=== PATIENT | male | born 1945 | race Caucasian/White ===

== ENCOUNTER 2016-03-02 09:16 | Inpatient (IN) | payer OTHER ==
[2016-03-01 10:17] VITALS: BMI 32.9
[~2016-03-02] VITALS: Ht 175.3 cm; Wt 92.7 kg
[2016-03-02] VITALS (16 sets, daily range): BP systolic 111–163; BP diastolic 50–85; PULSE 66–81; RESP 0–22; Ht 175.3 cm; Wt 92.7 kg
[2016-03-02] MEDS ORDERED: D5W-0.45 NACL + KCL 20 MEQ 1,000 ML IV SCH (11:00)
[2016-03-02] MEDS ORDERED: CEFAZOLIN 2 GM/50 ML (PMX) 50 ML IVPB ONE (11:00)
--- NOTE | 2016-03-02 11:41 | HPN ---
Date/Time of Note Date/Time of Note DATE: 03/02/16 TIME: 11:41 Interval H&P Admission Note Pt. seen H&P reviewed: No system changes Pt. seen H&P reviewed. No system changes (I attest that I have seen and examined the patient and reviewed the operation in detail, as well as its risks , benefits and alternatives of the operation). I attest that I have seen and examined the patient and reviewed in detail the operation, and its associated risks, benefits and alternative. I have answered all the patient's questions to the best of my ability and the patient wishes to proceed. Please refer to rest of electronic medical record for additional updates. GLADYS MORALES M.D. Mar 02, 2016 11:41
[2016-03-02] MEDS ORDERED: BUPIVACAINE 0.25%/EPI (SDV) 30 ML INJ ONE (11:58)
[2016-03-02] MEDS ORDERED: MIDAZOLAM 1 MG/ML 2 ML INJ ONE (12:23)
[2016-03-02] MEDS ORDERED: BUPIVACAINE 0.25%/EPI (SDV) 30 ML INJ INJ ONE (12:27)
[2016-03-02] MEDS ORDERED: ASPI81TA3 PO (14:46)
[2016-03-02] MEDS ORDERED: LEVO75TA5 PO (14:47)
[2016-03-02] MEDS ORDERED: TAMS0.4C2 PO (14:55)
[2016-03-02] MEDS ORDERED: ALLO100T PO (14:55)
[2016-03-02] MEDS ORDERED: DIGO125T6 PO (14:55)
[2016-03-02] MEDS ORDERED: HEP30MU30 IJ (14:55)
[2016-03-02] MEDS ORDERED: CARV3.1260 PO (14:55)
[2016-03-02] MEDS ORDERED: RANO500T2 PO (14:55)
[2016-03-02] MEDS ORDERED: ALBU2.5V9 IH (14:55)
[2016-03-02] MEDS ORDERED: PANT40TA4 PO (14:55)
[2016-03-02] MEDS ORDERED: RAMI2.5C36 PO (14:55)
[2016-03-02] MEDS ORDERED: ATOR40TA68 PO (14:55)
[2016-03-02] MEDS ORDERED: DIVA250T4 PO (14:55)
[2016-03-02] MEDS ORDERED: FENO150C3 PO (14:55)
[2016-03-02] MEDS ORDERED: LAS80 PO (14:55)
[2016-03-02] MEDS ORDERED: ONDANSETRON 4 MG INJ IV PRN (15:00)
[2016-03-02] MEDS ORDERED: FENTAnyl 50 MCG/ML VIAL IV PRN (15:00)
[2016-03-02] MEDS ORDERED: DIPHENHYDRAMINE 50 MG INJ IV PRN (15:00)
[2016-03-02] MEDS ORDERED: MEPERIDINE 25 MG INJ IV PRN (15:00)
[2016-03-02] MEDS ORDERED: FUROSEMIDE 20 MG INJ ONE (16:13)
[2016-03-02] MEDS ORDERED: ONDANSETRON 4 MG INJ ONE (16:45)
[2016-03-02] MEDS ORDERED: GLYCOPYRROLATE 0.4 MG INJ ONE (16:45)
[2016-03-02] MEDS ORDERED: ETOMIDATE 20 MG INJ ONE (16:45)
[2016-03-02] MEDS ORDERED: NEOSTIGMINE 3 MG/3 ML SYRINGE ONE (16:45)
[2016-03-02] MEDS ORDERED: LIDOCAINE 2% (SDV) 5 ML INJ ONE (16:45)
[2016-03-02] MEDS ORDERED: ROCURONIUM 50 MG INJ ONE (16:45)
[2016-03-02] MEDS ORDERED: CEFAZOLIN 1 GM INJ ONE (16:48)
[2016-03-02] MEDS ORDERED: metroNIDAZOLE 500 MG/NS (PMX) 100 ML IVPB ONE (16:48)
[2016-03-02] MEDS ORDERED: HYDROCODONE/APAP (5/325) TAB PO PRN ×2 (17:00)
[2016-03-02] MEDS ORDERED: HYDROmorphONE 1 MG/ML SYG IV PRN (17:00)
[2016-03-02] MEDS ORDERED: DOCUSATE SODIUM 100 MG CAP PO PRN (17:00)
[2016-03-02] MEDS ORDERED: BISACODYL 10 MG SUPP PR PRN (17:00)
[2016-03-02] MEDS ORDERED: NA PHOSPHATE/BIPHOS 133 ML ENEMA PR PRN ×3 (17:00→18:00)
--- NOTE | 2016-03-02 17:09 | OPR ---
Date/Time of Note Date/Time of Note DATE: 03/02/16 TIME: 17:08 Operative Report Operative Findings [facility] INPATIENT OPERATIVE NOTE PLACE OF SERVICE: [facility] DATE OF SURGERY: 03/02/2016 PREOPERATIVE DIAGNOSIS: 1. Acute cholecystitis 2. Back pain 3. CAD (coronary artery disease) 4. Decreased renal function 5. Foot swelling 6. High blood pressure 7. High blood sugar 8. History of Clostridium difficile infection 9. History of methicillin resistant staphylococcus aureus (MRSA) 10. Hypothyroidism 11. Incisional hernia 12. Serum cholesterol very high 13. Stroke 14. Weakness 15. AMPUTATION OF TOE 16. Angioplasty 17. CABG x 5 - Coronary artery bypass grafts x 5 18. Cardiac catheterization of right and left heart for ventriculography 19. Cataract 20. Colonoscopy 21. GASTRIC BYPASS FOR OBESITY 22. Arthritis POSTOPERATIVE DIAGNOSIS: 1. Severe acute on chronic cholecystitis 2. Back pain 3. CAD (coronary artery disease) 4. Decreased renal function 5. Foot swelling 6. High blood pressure 7. High blood sugar 8. History of Clostridium difficile infection 9. History of methicillin resistant staphylococcus aureus (MRSA) 10. Hypothyroidism 11. Incisional hernia 12. Serum cholesterol very high 13. Stroke 14. Weakness 15. AMPUTATION OF TOE 16. Angioplasty 17. CABG x 5 - Coronary artery bypass grafts x 5 18. Cardiac catheterization of right and left heart for ventriculography 19. Cataract 20. Colonoscopy 21. GASTRIC BYPASS FOR OBESITY 22. Arthritis OPERATION: 1. Laparoscopic cholecystectomy, partial; modifier 22 2. Intraoperative ultrasound of liver 3. Abdominal lavage 4. Lysis of adhesions 5. Reinforcement of cholecystectomy staple line SURGEON: Gladys Morales M.D. CIRCULAR SAWYER HELPER: 1. WILLIAM Lira ANESTHESIA: General endotracheal tube anesthesia ANESTHESIOLOGIST: Jackie De Los Santos M.D. BRIEF SUMMARY: An otherwise uncomplicated but very challenging laparoscopic cholecystectomy was performed with findings of severe acute on chronic cholecystitis and no major evidence of malignancy. BRIEF HISTORY: The patient is a very pleasant 70-year-old gentleman, well known to me from prior admission in September 2015 at [facility] when he had just had back surgery and I assisted with non-operative management of concerns about chronic cholecystitis, who was readmitted to [facility] on 02/03/16 with otherwise asymptomatic gallbladder wall abnormal thickening on imaging in the setting of acute on chronic congestive heart failure, renal compromise and GI bleeding. He again stabilized enough to be able to discharge home. I had discussed his case with his minilab operator, Dr. Shabazz and we concluded that there were no further risk reduction strategies that could be employed for his heart. Given the sig change in GB images, I recommended that we proceed with laparoscopic, possible open cholecystectomy. We reviewed the operation in detail as well as the risks, benefits, alternatives, and expected outcomes of this operation. After careful consideration of all the risks, benefits, and alternatives, the patient and family appeared to understand those risks and wished to proceed with surgery. For a detailed report of my consultation with patient and family, please refer to my separate consultation note. STATEMENT OF THE INFORMED CONSENT: The patient and family appeared to understand the risks of the operation to include, but not be limited to risk of postoperative pain and scar tissue, possible infection or bleeding requiring other interventions such as opening the wound, placement of drainage catheters, or other operative interventions; possible injury to surrounding to structures including bowel, bladder, bile duct, or blood vessels, or solid organs such as liver, kidney, or pancreas requiring other interventions or procedures; possible leakage of bile from surgical clip sites, suture lines, or worse, from common bile duct injury, causing significant increase in morbidity and mortality and requiring multiple interventions including but not limited to, placement of drainage catheters, imaging studies, as well as operative interventions; possible other source of sepsis such as urinary tract infections or pneumonias, or other sources of potentially life threatening problems such as deep venous thrombus formation causing pulmonary embolism, myocardial arrhythmias and infarctions, and even . We also briefly discussed the potential need to receive blood products and their potential complications of blood transfusion reactions, transmission of infections, or other complications. After careful consideration of all their options, the patient and family appeared to understand and wished to proceed with surgery. DESCRIPTION OF PROCEDURE: After obtaining informed consent, the patient was brought into the operating room and was placed in a normal supine position, where successful general endotracheal tube anesthesia was performed. The patient 's abdominal skin was prepped and draped, from the nipple line down to the level of the groins, in the usual sterile fashion. Intravenous access was difficult to obtain but eventually obtained with the use of central line and placement of an A-line by anesthesiology, and appropriately chosen and dosed prophylactic intravenous antimicrobials were administered. We then called a surgical time-out where patient's identification, date of , nature of the operation, allergies, presence of intravenous antimicrobials, presence of needed equipment, and any other concerns were reviewed and agreed upon by all members of the operating room team. We then started the operation by placing a 5-mm skin incision in the right- upper quadrant, subcostal midclavicular line, and introduced a 5-mm [employer] trocar into the peritoneal space, visualizing all the layers of the abdominal wall as we entered. Note that there was no indication of any injury to underlying structures once we entered the peritoneum. We insufflated the abdominal cavity to a maximum pressure of 15 mmHg, again, confirmed lack of any injury to underlying structures prior to visualizing the rest of the abdominal cavity. We found significant amount of omental adhesions onto the midline from the patient's prior gastric bypass operation. We could not see the gallbladder, and the liver appeared to be reasonably healthy. There was no evidence of malignancy. No evidence of calcifications or significant issues with other abnormalities. With this information, we went a head and placed the other trocars under direct visualization, after injecting their sites with 0.25% Marcaine with epinephrine , placing a 5-mm trocar in the umbilical midline area, a 5-mm trocar in the right anterior axillary line, and a 12-mm trocar in the midline subxiphoid region. With our instruments in place, we had excellent visualization and access to the right-upper quadrant. We then proceeded to inspect the abdominal cavity carefully. The edge of the right lobe of the liver was fused onto omental adhesions that were going onto the transverse colon. We could not see fundus of the gallbladder. I therefore used intraoperative ultrasound to visualize the area of the gallbladder bed as follows: Intraoperative ultrasound of the liver: Gallbladder bed appeared to have a distinct border between the liver and the gallbladder. Gallbladder wall was thickened and there was complex fluid within the gallbladder reminiscent of chronic infection. No obvious indication of a mass process or infiltrative process was found and this alleviated our fears of a malignant process being the underlying cause of the patient's cholecystitis. We also briefly looked at the rest the liver as outlined. The following segments were visualized, and there were no lesions that were concerning for malignant disease in any of them: Caudate lobe: No lesion. Segment 2: No lesion. Segment 3: No lesion. Segment 4: No lesion in segment 4A and no lesion in segment 4B. Segment 5: No lesion. Segment 6: No lesion. Segment 7: No lesion. Segment 8: No lesion. We also noted antegrade flow through the portal vein on the left and right as well as the hepatic artery on the left and right and also antegrade flow through the middle right and left hepatic veins. Biliary system was not dilated. We then started the process of very meticulous lysis of adhesions that took approximately 60 minutes in order to free the edges of the gallbladder from its surrounding tissues. There was dense adhesions between the gallbladder and the course of the janse hepatis. We took extreme care to use judicious blunt force to dissect the gallbladder away from the janes hepatis and to dissect it off the gallbladder bed. In this process, we entered the gallbladder and suctioned off significant amount of foul-smelling purulent pus from the gallbladder. We opened the top of the gallbladder and used a stone scoop or to remove all the stones that were in the gallbladder (numerous and in different sizes). We then continued our careful dissection down the gallbladder bed keeping in mind the portal structures. There was very dense scar tissue present between the gallbladder and the liver but no infiltrative mass identified. I did send a part of the gallbladder wall to pathology for frozen sections and no evidence of malignancy was identified. Once we had mobilized 90% of the cores the gallbladder and I was sure that there was no stones within the remnant portion of the gallbladder, I decided to perform a partial cholecystectomy with one firing of the echelon stapler (60 mm ) blue load to transect the gallbladder from its attachments onto the janes hepatis. Note that this decision was made carefully and due to considerations for significant increase in injury to what happened to structures including common bile duct if further dissection was continued. The proximal left side of the staple line appeared to have an area of possible open area of staple line and for this reason I reinforced this region with one application of figure-of- eight 3-0 Vicryl suture laparoscopically. We then removed the gallbladder within an Endo Catch bag through the 12 mm trocar site without having to enlarge in this area. Gallbladder was sent to pathology for permanent sections. Returning to the abdominal cavity, we ensured that there was adequate hemostasis and bile-stasis, placed a 19 [place] drain through the right midclavicular subcostal port site and fixed the drain onto the skin using 2-0 nylon suture and laid the drain and in the gallbladder fossa, irrigated the abdominal cavity with copious amounts of normal saline (at least 2 L) and suctioned off the excess irrigant prior to removal of all of or equipment, including the pneumoperitoneum from the abdominal cavity, and then reapproximating the 12-mm trocar site with one [id number] 0 Vicryl suture, followed by washing the wounds with copious amounts of normal saline, and then reapproximating the skin using interrupted 4-0 Monocryl sutures. Light dressing was then applied. At the end of the operation, both the sponge count and needle count were reportedly correct x2. The patient tolerated the procedure without any reported complications. Note that this operation qualifies for modifier 22 given the degree of difficulty of the case as well as complex history of decision making. ESTIMATED BLOOD LOSS: 100 mL BLOOD OR BLOOD PRODUCT TRANSFUSIONS: One unit packed red blood cells was transfused given the preoperative anemic state of the patient and the cardiac issues at the end had recently. SPECIMENS: 1. Gallbladder COMPLICATIONS: None. DISPOSITION: Recovery area. Disclaimer: Inadvertent spelling and grammatical errors are likely due to EHR/ dictation software use and do not reflect on the quality of delivered patient care. GLADYS MORALES M.D. Mar 02, 2016 17:08
[2016-03-02 18:11] LABS: BASOPHIL # 0.2 10^3/ul (0.0-0.1); BASOPHILS % 3.3 % (0.0-2.0); EOSINOPHILS % 0.6 % (0.0-7.0); HEMATOCRIT 28.6 % (42.0-52.0); HEMOGLOBIN 9.4 g/dl (14.0-18.0); LYMPHOCYTES # 0.9 10^3/ul (0.8-2.9); LYMPHOCYTES % 15.7 % (15.0-51.0); MEAN CORPUSCULAR HEMOGLOBIN 29.2 pg (29.0-33.0); MEAN CORPUSCULAR HGB CONC 32.9 g/dl (32.0-37.0); MEAN CORPUSCULAR VOLUME 88.6 fl (82.0-101.0); MEAN PLATELET VOLUME 7.8 fl (7.4-10.4); MONOCYTE # 0.2 10^3/ul (0.3-0.9); MONOCYTES % 4.2 % (0.0-11.0); NEUTROPHIL # 4.3 10^3/ul (1.6-7.5); NEUTROPHILS % 76.2 % (39.0-77.0); PLATELET COUNT 260 10^3/UL (140-440); RED BLOOD COUNT 3.23 10^6/ul (4.70-6.10); RED CELL DISTRIBUTION WIDTH 24.6 % (11.5-14.5); UNCORRECTED WBC 5.7 10^3/ul (4.8-10.8); WHITE BLOOD COUNT 5.7 10^3/ul (4.8-10.8)
[2016-03-02] MEDS: HYDROmorphONE 1 MG/ML SYG IV PRN ×2 (18:11→21:11)
[2016-03-02 18:18] LABS: CONDITION 1; LH ANALYZER COMMENTS 1
[2016-03-02 18:22] LABS: INR 1.33; PROTIME 16.6 Sec (12.2-14.2); PT RATIO 1.3
[2016-03-02 18:23] LABS: PARTIAL THROMBOPLASTIN TIME 33.3 Sec (25.0-35.0)
[2016-03-02 18:24] LABS: ALBUMIN 2.6 g/dl (3.3-4.9)
[2016-03-02 18:25] LABS: POTASSIUM 3.4 mmol/L (3.5-5.1)
[2016-03-02 18:27] LABS: BILIRUBIN,INDIRECT 0.3 mg/dl (0-1.1); BILIRUBIN,TOTAL 0.3 mg/dl (0.2-1.3)
[2016-03-02 18:28] LABS: ALBUMIN/GLOBULIN RATIO 0.78; CREATININE 1.87 mg/dl (0.61-1.24); TOTAL PROTEIN 5.9 g/dl (6.1-8.1)
[2016-03-02 18:31] LABS: CALCIUM 8.2 mg/dl (8.4-10.2)
[2016-03-02 19:08] LABS: PHOSPHORUS 3.7 mg/dl (2.5-4.9)
[2016-03-02 19:09] LABS: MAGNESIUM 1.9 mg/dl (1.7-2.5)
--- NOTE | 2016-03-02 19:31 | CONS ---
DATE OF ADMISSION: 03/02/2016 DATE OF CONSULTATION: 03/02/2016 REQUESTING BOOTH MANAGER: Dr. Gladys Morales. REASON FOR CONSULTATION: Medical management postoperatively. HISTORY OF PRESENT ILLNESS: This is a 70-year-old gentleman with multiple medical problems, diagnos es, such as myocardial infarction, coronary artery disease, CABG, end-stage renal disease on hemodia lysis, cardiomyopathy, diabetic nephropathy, recent diagnosis of DVT on 01/2016 on Effient, status p ost IVC filter, wheelchair bound, who usually presents and is hospitalized at [facility]. The patient was seen and evaluated by Dr. Gladys Morales at [facility] secondary to having a bdominal pain and was diagnosed with symptomatic cholelithiasis, although he recently just had a galicia inectomy and the patient then was sent to care home facility. Then this time, he has been adm itted by Dr. Gladys Morales for elective laparoscopic cholecystectomy secondary to severe acute on ch ronic cholecystitis. After discussing the mode of treatment and the risks and benefits of the surge ry and signing consent, the patient was taken to OR on 03/02/2016. Under general endotracheal tube anesthesia, the patient had a laparoscopic cholecystectomy, partial modifier 22, intraoperative ultr asound of the liver, lysis of adhesions. The patient tolerated the procedure well and was taken to recovery room. Estimated blood loss was 100 mL. One unit of packed red blood cells was transfused given the preoperative anemic state of patient and cardiac issue at the end of the surgery. The pat ient was taken to recovery room in stable condition. At this time, patient is awake, alert, able to follow simple commands. Great amount of information was obtained from his spouse who was at the [facility]. PAST MEDICAL AND SURGICAL HISTORY: As above per HPI. MEDICATIONS: 1. Albuterol sulfate. 2. Allopurinol. 3. Aspirin 81 mg. 4. Lipitor 40 mg. 5. Coreg 3.125 mg. 6. Digoxin 0.125 mg. 7. Divalproex 250 mg. 8. Fenofibrate 145 mg. 9. Lasix 80 mg. 10. Heparin 5000 units q.8h. 11. Levothyroxine 75 mcg. 12. Protonix 40 mg. 13. ____ 2.5 mg. 14. Ranexa 500 mg. 15. Flomax 0.4 mg. PAST MEDICAL AND SURGICAL HISTORY: 1. History of myocardial infarction. 2. Coronary artery disease. 3. History of coronary artery bypass graft. 4. History of deep venous thrombosis, status post inferior vena cava filter. 5. Diabetes mellitus. 6. End-stage renal disease on hemodialysis. 7. Diabetic nephropathy. 8. Congestive heart failure. 9. Recent laminectomy. 10. Gout. 11. Dyslipidemia. 12. Seizure disorder. 13. Hypothyroidism. 14. GERD. 15. Benign prostatic hypertrophy. ALLERGIES: 1. TAPE. 2. TRAMADOL. SOCIAL HISTORY: Former smoker. He used to drink alcohol occasionally. No illicit drugs. He lives at home with his , although at this time he was recently at a care home facility secondar y to debility. REVIEW OF SYSTEMS: As above per HPI, otherwise 12 review of systems has been found to be negative. PHYSICAL EXAMINATION: VITAL SIGNS: Temperature 98.0, pulse 73, respiration 16, blood pressure 163/85, oxygen 98% in room air. GENERAL APPEARANCE: The patient is lying in bed comfortably without any distress. He is awake, remberto rt, is able to follow commands. EYES AND EARS, NOSE, THROAT: Conjunctivae and lids are normal. Pupils are normal. Extraocular mov ements normal. Hearing grossly normal. Lips, teeth, and gums are normal. Oral mucosa mildly dry. NECK: Supple. Trachea is midline. LUNGS: Clear to auscultation bilaterally. CARDIOVASCULAR: Normal S1, S2. Regular rhythm and rate. Positive 1 edema bilateral lower extremit ies. ABDOMEN: Soft, nontender. Surgical site is dry and clean. There is a CHRIS tube in place. EXTREMITIES: Bilateral lower extremity edema with ____ on the left lower extremity. NEUROLOGIC: He is awake, alert. LABORATORY WORK AND IMAGING: Glucose is 97. The rest is pending. ASSESSMENT AND PLAN: 1. Acute on chronic cholecystitis status post laparoscopic cholecystectomy. Continue postsurgical care by Dr. Gladys Morales. 2. History of coronary artery disease, status post myocardial infarction. Continue Coreg, statin, aspirin. 3. Recent history of deep venous thrombosis, status post inferior vena cava filter. At this time, patient is on heparin, which will transition to Effient. 4. Hypothyroidism. Continue levothyroxine. 5. Congestive heart failure. Continue ____, Coreg. 6. Seizure disorder. Continue divalproex. 7. Dyslipidemia. Continue statin. 8. End-stage renal disease on hemodialysis. Nephrology has been consulted. 9. Diabetes mellitus. We will place the patient on insulin sliding scale. 10. For gastrointestinal prophylaxis, on proton pump inhibitor. 11. We will continue to monitor patient closely. Further recommendations, management, and treatmen t as per clinical course. Total amount of time was spent for evaluation of patient and consultation note 45 minutes. Dictated By: JS BATES MD PN/NTS Conf#: [id number] DID#: [id number] CC: GLADYS MORALES MD;*EndCC*
[2016-03-02 20:27] LABS: ADD UMIC YES; URINE BILIRUBIN (Dip) 1+ (NEGATIVE); URINE BLOOD (Dip) TRACE (NEGATIVE); URINE COLOR YELLOW (YELLOW); URINE GLUCOSE (Dip) NEGATIVE (NEGATIVE); URINE KETONES (Dip) NEGATIVE (NEGATIVE); URINE LEUKOCYTE ESTERASE (Dip) NEGATIVE (NEGATIVE); URINE NITRITE (Dip) NEGATIVE (NEGATIVE); URINE TOTAL PROTEIN (Dip) 2+ (NEGATIVE); URINE UROBILINOGEN (Dip) 0.2 E.U./dL (0.1-1.0)
[2016-03-02 20:41] LABS: ICTOTEST NEGATIVE (NEGATIVE)
[2016-03-02 20:42] LABS: BACTERIA,URINE FEW; TRANSITIONAL EPI CELLS,URINE FEW
--- NOTE | 2016-03-02 21:18 | CONS ---
DATE OF ADMISSION: 03/02/2016 DATE OF CONSULTATION: 03/02/2016 TYPE OF CONSULTATION: Nephrology. REASON FOR CONSULTATION: Acute versus acute on chronic kidney injury, history of previous hemodialy sis on last admission. HISTORY OF PRESENT ILLNESS: This is a 70-year-old male who has a past medical history of myocardial infarction; coronary artery disease; coronary artery bypass graft; cardiomyopathy; diabetic nephrop athy; history of recent diagnosis of DVT in 01/2016, on Effient, status post IVC filter; wheelchair bound who usually gets admitted at the [facility]. He was recently evaluated by Dr. Andrez Hill at [facility] for having abdominal pain and was diagnosed with symptomatic cholelit hiasis. He was sent to a halfway facility from that. He was brought in for elective laparo scopic cholecystectomy for acute on chronic cholecystitis. Apparently patient gives a history of having hemodialysis for acute on chronic renal failure approxi mately 1 week before. He had hemodialysis done, and since he was able to come off the hemodialysis, has not required any hemodialysis since then. This time, he was brought in by Dr. Andrez Hill fo r elective laparoscopic cholecystectomy. He underwent surgery. He was evaluated in the recovery ro om. He had approximately 100 mL blood loss. Currently he denies any symptoms of dysuria, any hemat uria. He is making a good amount of urine. No chest pain, palpitations. He is awake, alert, able to follow simple commands. The patient's was at bedside, and some of the information has been obtained from his spouse at bedside. PAST MEDICAL HISTORY AND SURGICAL HISTORY: As per the HPI. MEDICATIONS: As per medical reconciliation. ALLERGIES: 1. TAPE. 2. TRAMADOL. SOCIAL HISTORY: He is a former smoker, used to drink alcohol occasionally. No illicit drugs. He l doris at home with his , although at this time he was recently at a halfway facility, dis charged from recent admission at the [facility]. REVIEW OF SYSTEMS: As per HPI. PHYSICAL EXAMINATION: VITAL SIGNS: Temperature 98.7, heart rate is 66, respirations are 18, blood pressure is 112/56, sat uration is 97% on 2 L nasal cannula. GENERAL: Awake, alert. No acute distress. HEENT: Normal. Oropharynx clear. NECK: Supple. No JVD, no lymphadenopathy. LUNGS: Clear to auscultation. No crackles, no wheezes. HEART: S1, S2 with regular rhythm, no murmur. ABDOMEN: Soft. Dressing is intact. No bleeding, no hematoma. EXTREMITIES: No clubbing, cyanosis, edema. NEUROLOGICAL: Nonfocal, intact. PSYCHIATRIC: Appropriate affect and mood. LABORATORY DATA: 1. WBC 5.7, hemoglobin 9.4, platelet count is 260. Sodium 139, potassium 3.4, chloride 98, bicarbo velia 32, BUN 42, creatinine 1.8, glucose is 80, calcium is 8.2. LFTs are normal. Phosphorus is 3.7 , magnesium 1.9. Albumin 2.6. 2. PT 16.6, PTT 33.3, INR 1.33. IMPRESSION: This is a 70-year-old male with: 1. Status post laparoscopic cholecystectomy, postoperative day 0. 2. Acute versus acute on chronic renal failure, likely secondary to a little prerenal azotemia. 3. History of chronic kidney disease, possibly stage III secondary to diabetic nephropathy. 4. History of coronary artery disease. 5. History of hypertension. 6. History of diabetes mellitus. 7. History of previous hemodialysis done for acute renal failure versus acute on chronic renal fail ure. The patient has been able to come off from dialysis. 8. History of recent diagnosis of deep venous thrombosis at [facility] 01/2016, on Effient . 9. Status post inferior vena cava filter. PLAN: Thank you, Dr. Rod, for this consultation. Apparently the patient has had a history of hemodialysis, and he was able to come off hemodialysis. Currently he is not on hemodialysis. His creatinine has been around 1.2, which I think is likely acute versus acute on chronic renal failure secondary to possible prerenal azotemia. He has a history of chronic kidney disease stage III secon natalia to diabetic nephropathy. I will order the patient's urine studies including a urine protein, urine creatinine, urine sodium, and I will also order the renal ultrasound to assess his kidney size to rule out hydronephrosis. Pl ease note that the patient likely has a history of chronic kidney disease stage III secondary to rodney betic nephropathy. Will replace the potassium with KCl 20 mEq IV x1. The patient was seen in the recovery room, and he is getting admitted to the telemetry floor postoperatively. Hospitalist service is also on the [facility] e for medicine consult. Thank you for this consultation. I will continue to follow this patient along with the hospitalist service and along with General Surgery, Dr. Andrez Hill. Dictated By: JOSE VELARDE MD, KP/MORE Conf#: [id number] DID#: [id number]
[2016-03-02] MEDS: D5W-0.45 NACL + KCL 20 MEQ 1,000 ML IV SCH (21:33)
[2016-03-02] MEDS: ALBUTEROL 0.5% (NEB) 2.5 MG/0.5 ML AMP INH SCH (21:47)
[2016-03-02] MEDS: TAMSULOSIN (SR) 0.4 MG CAP PO SCH (22:52)
[2016-03-02] MEDS: RANOLAZINE (SR) 500 MG TAB PO SCH (22:52)
[2016-03-02] MEDS: DIVALPROEX (EC) 250 MG TAB PO SCH (22:52)
[2016-03-02] MEDS: FUROSEMIDE 40 MG TAB PO SCH (22:53)
[2016-03-02] MEDS: ALLOPURINOL 100 MG TAB PO SCH (22:56)
[2016-03-03] VITALS (13 sets, daily range): BP systolic 100–138; BP diastolic 46–69; PULSE 66–81; RESP 16–19
[2016-03-03] MEDS: HYDROmorphONE 1 MG/ML SYG IV PRN ×3 (01:26→17:20)
[2016-03-03] MEDS: ALBUTEROL 0.5% (NEB) 2.5 MG/0.5 ML AMP INH SCH ×6 (02:02→21:09)
[2016-03-03] MEDS: FUROSEMIDE 40 MG TAB PO SCH ×2 (06:00→17:16)
[2016-03-03] MEDS: PANTOPRAZOLE (EC) 40 MG TAB PO SCH (06:14)
[2016-03-03] MEDS: LEVOTHYROXINE 75 MCG TAB PO SCH (06:14)
[2016-03-03] MEDS: D5W-0.45 NACL + KCL 20 MEQ 1,000 ML IV SCH (06:17)
[2016-03-03 07:33] LABS: BASOPHILS % 0.4 % (0.0-2.0); EOSINOPHILS % 0.3 % (0.0-7.0); HEMATOCRIT 28.9 % (42.0-52.0); HEMOGLOBIN 9.7 g/dl (14.0-18.0); LYMPHOCYTES # 0.8 10^3/ul (0.8-2.9); LYMPHOCYTES % 9.9 % (15.0-51.0); MEAN CORPUSCULAR HEMOGLOBIN 29.9 pg (29.0-33.0); MEAN CORPUSCULAR HGB CONC 33.6 g/dl (32.0-37.0); MEAN CORPUSCULAR VOLUME 88.9 fl (82.0-101.0); MEAN PLATELET VOLUME 8.6 fl (7.4-10.4); MONOCYTE # 0.5 10^3/ul (0.3-0.9); MONOCYTES % 6.5 % (0.0-11.0); NEUTROPHIL # 6.9 10^3/ul (1.6-7.5); NEUTROPHILS % 82.9 % (39.0-77.0); PLATELET COUNT 234 10^3/UL (140-440); RED BLOOD COUNT 3.25 10^6/ul (4.70-6.10); RED CELL DISTRIBUTION WIDTH 25.1 % (11.5-14.5); UNCORRECTED WBC 8.3 10^3/ul (4.8-10.8); WHITE BLOOD COUNT 8.3 10^3/ul (4.8-10.8)
[2016-03-03 07:45] LABS: ALBUMIN 2.2 g/dl (3.3-4.9)
[2016-03-03 07:46] LABS: INR 1.39; PROTIME 17.1 Sec (12.2-14.2); PT RATIO 1.3
[2016-03-03 07:47] LABS: PARTIAL THROMBOPLASTIN TIME 36.4 Sec (25.0-35.0)
[2016-03-03 07:48] LABS: ALBUMIN/GLOBULIN RATIO 0.75; BILIRUBIN,INDIRECT 0.3 mg/dl (0-1.1); BILIRUBIN,TOTAL 0.3 mg/dl (0.2-1.3); CREATININE 2.07 mg/dl (0.61-1.24); TOTAL PROTEIN 5.1 g/dl (6.1-8.1)
[2016-03-03 07:49] LABS: CALCIUM 7.8 mg/dl (8.4-10.2); MAGNESIUM 1.9 mg/dl (1.7-2.5); PHOSPHORUS 3.6 mg/dl (2.5-4.9)
[2016-03-03 08:00] LABS: CONDITION 1; LH ANALYZER COMMENTS 1; SUSPECT 1
[2016-03-03] MEDS: RANOLAZINE (SR) 500 MG TAB PO SCH ×2 (08:44→21:16)
[2016-03-03] MEDS: ALLOPURINOL 100 MG TAB PO SCH ×2 (08:45→21:16)
[2016-03-03] MEDS: FENOFIBRATE 145 MG TAB PO SCH (08:45)
[2016-03-03] MEDS: DIVALPROEX (EC) 250 MG TAB PO SCH ×2 (08:46→21:16)
[2016-03-03] MEDS: ASPIRIN 81 MG TAB PO SCH (08:46)
[2016-03-03] MEDS: FAMOTIDINE 20 MG INJ IV SCH (08:47)
[2016-03-03] MEDS: HEPARIN 5,000 UNIT/0.5 ML SYG SC SCH ×2 (08:48→17:18)
[2016-03-03] MEDS: BENAZEPRIL 10 MG TAB PO SCH (08:53)
[2016-03-03] MEDS ORDERED: HEPARIN 5,000 UNIT/0.5 ML SYG SC SCH (09:00)
[2016-03-03] MEDS ORDERED: ENOXAPARIN 40 MG/0.4 ML SYG SC SCH (09:00)
--- NOTE | 2016-03-03 10:45 | RADRPT ---
PROCEDURE: Retroperitoneal US. CLINICAL INDICATION: Renal insufficiency TECHNIQUE: Multiple sonographic images of the kidneys and retroperitoneum were obtained. The imag es were reviewed on a PACS workstation. COMPARISON: No prior studies are available for comparison. FINDINGS: The kidneys are normal in size, contour, cortical thickness and echogenicity. The right kidney measures 10.7 cm. The left kidney measures 12 cm. No kidney stones are visualized. There is no evidence for hydronephrosis. The urinary bladder is not visualized. RPTAT: AA IMPRESSION: Unremarkable retroperitoneal ultrasound. .Matt Mo MD, Date Time Electronically viewed and signed by .Matt Mo MD, on 03/03/2016 10:45 .S/
--- NOTE | 2016-03-03 12:27 | CONS ---
Date/Time of Note Date/Time of Note DATE: 03/03/16 TIME: 12:23 Assessment/Plan Assessment/Plan Chief Complaint/Hosp Course ASSESSMENT AND PLAN: 1. Acute on chronic cholecystitis status post laparoscopic cholecystectomy. Continue postsurgical care by Dr. Gladys Morales. Continue pain medication, antiemetic medication 2. History of coronary artery disease, status post myocardial infarction. Continue Coreg, statin, aspirin. 3. Recent history of deep venous thrombosis, status post inferior vena cava filter. At this time, patient is on heparin, which will transition to Effient. 4. Hypothyroidism. Continue levothyroxine. 5. Congestive heart failure. Continue benazepril and Coreg. 6. Seizure disorder. Continue divalproex. 7. Dyslipidemia. Continue statin. 8. End-stage renal disease on hemodialysis. Nephrology has been consulted. 9. Diabetes mellitus. Stable, with the patient on low-carb diet 10. For gastrointestinal prophylaxis, on proton pump inhibitor. We will continue to monitor patient closely. Further recommendations, management, and treatment as per clinical course. Problems: Consultation Date/Type/Reason Admit Date/Time Mar 02, 2016 at 10:37 Initial Consult Date 03/02/16 Referring Provider: GLADYS MORALES M.D. 24 HR Interval Summary Free Text/Dictation Patient denies any chest pain or shortness of breath Tolerating oral intake Complains of having abdominal distention and drainage Exam/Review of Systems Vital Signs Vitals Vital Signs Date Time Temp Pulse Resp B/P Pulse Ox O2 Delivery O2 Flow Rate FiO2 03/03/16 12:15 85 20 97 Nasal Cannula 2.0 03/03/16 11:34 98.5 110/58 Intake and Output 03/02/16 03/02/16 03/03/16 15:00 23:00 07:00 Intake Total 500 ml 970 ml 1300 ml Output Total 1010 ml 800 ml Balance 500 ml -40 ml 500 ml Exam General: The patient is moderately overweight, Not in acute distress. HEENT: Atraumatic, normocephalic. The pupils are equal and round . Neck: Supple with full range of motion. Chest: Normal expansion of the thorax during inspiration Lungs: Clear to auscultation bilaterally Heart: Normal S1-S2, Regular rhythm and rate. Abdomen: Soft , nontender, minimally distended , bowel sounds are present. Surgical site is dry and clean, CHRIS tube 1 Extremities: Normal to inspection, +1 edema no cyanosis, erythema bilateral lower extremity Neurologic: Normal mental status,The patient is awake, alert and oriented . Results Result Diagram: 03/03/1611 03/03/16 0611 Results 24 hrs Laboratory Tests Test 03/02/16 18:00 03/02/16 18:28 03/02/16 19:57 03/03/16 06:11 Activated Partial Thromboplast Time 33.3 36.4 H Alanine Aminotransferase (ALT/SGPT) 36 29 Albumin 2.6 L 2.2 L Albumin/Globulin Ratio 0.78 0.75 Alkaline Phosphatase 47 39 L Anion Gap 12 14 Aspartate Amino Transf (AST/SGOT) 99 H 79 H Basophils # 0.2 H 0.0 Basophils % 3.3 H 0.4 Blood Morphology Comment Blood Urea Nitrogen 42 H 41 H Calcium Level 8.2 L 7.8 L Carbon Dioxide Level 32 H 31 Chloride Level 98 98 Creatinine 1.87 H 2.07 H Direct Bilirubin 0.00 0.00 Eosinophils # 0.0 0.0 Eosinophils % 0.6 0.3 Globulin 3.30 H 2.90 Glucose Level 80 77 Hematocrit 28.6 L 28.9 L Hemoglobin 9.4 L 9.7 L INR International Normalized Ratio 1.33 1.39 Indirect Bilirubin 0.3 0.3 Lactic Acid Level 0.8 1.9 Lymphocytes # 0.9 0.8 Lymphocytes % 15.7 9.9 L Magnesium Level 1.9 1.9 Mean Corpuscular Hemoglobin 29.2 29.9 Mean Corpuscular Hemoglobin Concent 32.9 33.6 Mean Corpuscular Volume 88.6 88.9 Mean Platelet Volume 7.8 8.6 Monocytes # 0.2 L 0.5 Monocytes % 4.2 6.5 Neutrophils # 4.3 6.9 Neutrophils % 76.2 82.9 H Nucleated Red Blood Cells # 0.0 0.0 Nucleated Red Blood Cells % 0.0 0.0 Phosphorus Level 3.7 3.6 Platelet Count 260 234 Potassium Level 3.4 L 4.0 Prothrombin Time 16.6 H 17.1 H Prothrombin Time Ratio 1.3 1.3 Red Blood Count 3.23 L 3.25 L Red Cell Distribution Width 24.6 H 25.1 H Sodium Level 139 139 Total Bilirubin 0.3 0.3 Total Protein 5.9 L 5.1 L White Blood Count 5.7 8.3 # Bedside Glucose 84 Urine Bacteria FEW Urine Bilirubin 1+ H Urine Clarity CLEAR Urine Color YELLOW Urine Glucose NEGATIVE Urine Hemoglobin TRACE Urine Ictotest NEGATIVE Urine Ketones NEGATIVE Urine Leukocyte Esterase NEGATIVE Urine Microscopic RBC 10-25 Urine Microscopic WBC NONE SEEN Urine Nitrite NEGATIVE Urine Specific [place] 1.020 Urine Total Protein 2+ H Urine Transitional Epithelial Cells FEW Urine Urobilinogen 0.2 E.U./dL Urine pH 6.0 B-Type Natriuretic Peptide 63480 H Medications Medications Current Medications Potassium Chloride/Dextrose/ Sod Cl (D5-1/2ns + KCl 20 Meq) 1,000 ml @ 100 mls/ hr Q10H IV Last administered on 03/03/16 06:17; Admin Dose 100 MLS/HR; Start 03/02/16 at 16:51 Acetaminophen/ Hydrocodone Bitart ([place] (5/325)) 1 tab Q4H PRN PO PAIN LEVEL 4 -7; Start 03/02/16 at 17:00 Acetaminophen/ Hydrocodone Bitart ([place] (5/325)) 2 tab Q4H PRN PO PAIN LEVEL 7 -10; Start 03/02/16 at 17:00 Hydromorphone HCl (Dilaudid) 0.5 mg Q2H PRN IV PAIN; Start 03/02/16 at 17:00 Hydromorphone HCl (Dilaudid) 1 mg Q2H PRN IV PAIN Last administered on 06:12; Admin Dose 1 MG; Start 03/02/16 at 17:00 Docusate Sodium (Colace) 100 mg BID PRN PO CONSTIPATION; Start 03/02/16 at 17: 00 Bisacodyl (Dulcolax Supp) 10 mg BID PRN [place] CONSTIPATION; Start 03/02/16 at 17: 00 Famotidine (Pepcid Iv) 20 mg DAILY IV Last administered on 03/03/16 08:47; Admin Dose 20 MG; Start 03/03/16 at 09:00 Docusate Sodium (Colace) 100 mg BID PO ; Start 03/04/16 at 09:00; Status Future Hold Bisacodyl (Dulcolax Supp) 10 mg BID [place] ; Start 03/04/16 at 09:00; Status Future Hold Sodium Biphosphate/ Sodium Phosphate (Fleet Enema) 133 ml BID@03,15 PRN [place] CONSTIPATION; Start 03/02/16 at 18:00 Sodium Biphosphate/ Sodium Phosphate (Fleet Enema) 133 ml BID@03,15 [place] ; Start 03/04/16 at 03:00 Heparin Sodium (Porcine) (Heparin (5000 Units/0.5 ml)) 5,000 unit Q8H SC Last administered on 03/03/16 08:48; Admin Dose 5,000 UNIT; Start 03/03/16 at 09:00 ; Stop 03/05/16 at 09:00 Prasugrel (Effient) 5 mg DAILY PO ; Start 03/05/16 at 09:00 Allopurinol (Zyloprim) 100 mg BID PO Last administered on 03/03/16 08:45; Admin Dose 100 MG; Start 03/02/16 at 21:30 Aspirin (Aspirin) 81 mg DAILY PO Last administered on 03/03/16 08:46; Admin Dose 81 MG; Start 03/03/16 at 09:00 Carvedilol (Coreg) 3.125 mg BID PO Last administered on 03/03/16 08:53; Admin Dose 3.125 MG; Start 03/02/16 at 21:30 Digoxin (Digoxin) 0.125 mg DAILY@13 PO ; Start 03/03/16 at 13:00 Divalproex Sodium (Depakote) 250 mg BID PO Last administered on 03/03/16 08:46 ; Admin Dose 250 MG; Start 03/02/16 at 21:00 Pantoprazole (Protonix Tab) 40 mg DAILY@06 PO Last administered on 03/03/16 06 :14; Admin Dose 40 MG; Start 03/03/16 at 06:00 Ranolazine (Ranexa) 500 mg Q12 PO Last administered on 03/03/16 08:44; Admin Dose 500 MG; Start 03/02/16 at 21:00 Tamsulosin HCl (Flomax) 0.4 mg DAILY@21 PO Last administered on 03/02/16 22:52 ; Admin Dose 0.4 MG; Start 03/02/16 at 21:00 Fenofibrate (Tricor) 145 mg DAILY PO Last administered on 03/03/16 08:45; Admin Dose 145 MG; Start 03/03/16 at 09:00 Benazepril HCl (Lotensin) 10 mg DAILY PO Last administered on 03/03/16t 08:53; Admin Dose 10 MG; Start 03/03/16 at 09:00 JS BATES MD Mar 03, 2016 12:27
[2016-03-03] MEDS: DIGOXIN 0.125 MG TAB PO SCH (13:00)
--- NOTE | 2016-03-03 13:09 | CONS ---
Date/Time of Note Date/Time of Note DATE: 03/03/16 TIME: 13:07 Assessment/Plan Assessment/Plan Chief Complaint/Hosp Course IMPRESSION: This is a 70-year-old male with: 1. Status post laparoscopic cholecystectomy, 2. chronic renal failure, 3. History of chronic kidney disease, possibly stage III secondary to diabetic nephropathy. 4. History of coronary artery disease. 5. History of hypertension. 6. History of diabetes mellitus. 7. History of previous hemodialysis done for acute renal failure versus acute on chronic renal failure. The patient has been able to come off from dialysis. 8. History of recent diagnosis of deep venous thrombosis at [facility] 01/2016, on Effient. 9. Status post inferior vena cava filter. plan ck labs per dr smiley Problems: Consultation Date/Type/Reason Admit Date/Time Mar 02, 2016 at 10:37 Initial Consult Date Type of Consultation: renal Referring Provider: GLADYS MORALES M.D. 24 HR Interval Summary Constitutional: no complaints Exam/Review of Systems Vital Signs Vitals Vital Signs Date Time Temp Pulse Resp B/P Pulse Ox O2 Delivery O2 Flow Rate FiO2 03/03/16 12:15 85 20 97 Nasal Cannula 2.0 03/03/16 11:34 98.5 110/58 Intake and Output 03/02/16 03/02/16 03/03/16 15:00 23:00 07:00 Intake Total 500 ml 970 ml 1300 ml Output Total 1010 ml 800 ml Balance 500 ml -40 ml 500 ml Exam Neck: supple Respiratory: clear to auscultation Cardiovascular: regular rate and rhythm Gastrointestinal: bowel sounds (+), other (dressing+), soft Results Result Diagram: 03/03/16 0611 03/03/16 0611 Results 24 hrs Laboratory Tests Test 03/02/16 18:00 03/02/16 18:28 03/02/16 19:57 03/03/16 06:11 Activated Partial Thromboplast Time 33.3 36.4 H Alanine Aminotransferase (ALT/SGPT) 36 29 Albumin 2.6 L 2.2 L Albumin/Globulin Ratio 0.78 0.75 Alkaline Phosphatase 47 39 L Anion Gap 12 14 Aspartate Amino Transf (AST/SGOT) 99 H 79 H Basophils # 0.2 H 0.0 Basophils % 3.3 H 0.4 Blood Morphology Comment Blood Urea Nitrogen 42 H 41 H Calcium Level 8.2 L 7.8 L Carbon Dioxide Level 32 H 31 Chloride Level 98 98 Creatinine 1.87 H 2.07 H Direct Bilirubin 0.00 0.00 Eosinophils # 0.0 0.0 Eosinophils % 0.6 0.3 Globulin 3.30 H 2.90 Glucose Level 80 77 Hematocrit 28.6 L 28.9 L Hemoglobin 9.4 L 9.7 L INR International Normalized Ratio 1.33 1.39 Indirect Bilirubin 0.3 0.3 Lactic Acid Level 0.8 1.9 Lymphocytes # 0.9 0.8 Lymphocytes % 15.7 9.9 L Magnesium Level 1.9 1.9 Mean Corpuscular Hemoglobin 29.2 29.9 Mean Corpuscular Hemoglobin Concent 32.9 33.6 Mean Corpuscular Volume 88.6 88.9 Mean Platelet Volume 7.8 8.6 Monocytes # 0.2 L 0.5 Monocytes % 4.2 6.5 Neutrophils # 4.3 6.9 Neutrophils % 76.2 82.9 H Nucleated Red Blood Cells # 0.0 0.0 Nucleated Red Blood Cells % 0.0 0.0 Phosphorus Level 3.7 3.6 Platelet Count 260 234 Potassium Level 3.4 L 4.0 Prothrombin Time 16.6 H 17.1 H Prothrombin Time Ratio 1.3 1.3 Red Blood Count 3.23 L 3.25 L Red Cell Distribution Width 24.6 H 25.1 H Sodium Level 139 139 Total Bilirubin 0.3 0.3 Total Protein 5.9 L 5.1 L White Blood Count 5.7 8.3 # Bedside Glucose 84 Urine Bacteria FEW Urine Bilirubin 1+ H Urine Clarity CLEAR Urine Color YELLOW Urine Glucose NEGATIVE Urine Hemoglobin TRACE Urine Ictotest NEGATIVE Urine Ketones NEGATIVE Urine Leukocyte Esterase NEGATIVE Urine Microscopic RBC 10-25 Urine Microscopic WBC NONE SEEN Urine Nitrite NEGATIVE Urine Specific [place] 1.020 Urine Total Protein 2+ H Urine Transitional Epithelial Cells FEW Urine Urobilinogen 0.2 E.U./dL Urine pH 6.0 B-Type Natriuretic Peptide 75270 H Medications Medications Current Medications Acetaminophen/ Hydrocodone Bitart ([place] (5/325)) 1 tab Q4H PRN PO PAIN LEVEL 4 -7; Start 03/02/16 at 17:00 Acetaminophen/ Hydrocodone Bitart ([place] (5/325)) 2 tab Q4H PRN PO PAIN LEVEL 7 -10; Start 03/02/16 at 17:00 Hydromorphone HCl (Dilaudid) 0.5 mg Q2H PRN IV PAIN; Start 03/02/16 at 17:00 Hydromorphone HCl (Dilaudid) 1 mg Q2H PRN IV PAIN Last administered on 06:12; Admin Dose 1 MG; Start 03/02/16 at 17:00 Docusate Sodium (Colace) 100 mg BID PRN PO CONSTIPATION; Start 03/02/16 at 17: 00 Bisacodyl (Dulcolax Supp) 10 mg BID PRN [place] CONSTIPATION; Start 03/02/16 at 17: 00 Famotidine (Pepcid Iv) 20 mg DAILY IV Last administered on 03/03/16 08:47; Admin Dose 20 MG; Start 03/03/16 at 09:00 Docusate Sodium (Colace) 100 mg BID PO ; Start 03/04/16 at 09:00; Status Future Hold Bisacodyl (Dulcolax Supp) 10 mg BID [place] ; Start 03/04/16 at 09:00; Status Future Hold Sodium Biphosphate/ Sodium Phosphate (Fleet Enema) 133 ml BID@03,15 PRN [place] CONSTIPATION; Start 03/02/16 at 18:00 Sodium Biphosphate/ Sodium Phosphate (Fleet Enema) 133 ml BID@03,15 [place] ; Start 03/04/16 at 03:00 Heparin Sodium (Porcine) (Heparin (5000 Units/0.5 ml)) 5,000 unit Q8H SC Last administered on 03/03/16 08:48; Admin Dose 5,000 UNIT; Start 03/03/16 at 09:00 ; Stop 03/05/16 at 09:00 Prasugrel (Effient) 5 mg DAILY PO ; Start 03/05/16 at 09:00 Allopurinol (Zyloprim) 100 mg BID PO Last administered on 03/03/16 08:45; Admin Dose 100 MG; Start 03/02/16 at 21:30 Aspirin (Aspirin) 81 mg DAILY PO Last administered on 03/03/16 08:46; Admin Dose 81 MG; Start 03/03/16 at 09:00 Carvedilol (Coreg) 3.125 mg BID PO Last administered on 03/03/16 08:53; Admin Dose 3.125 MG; Start 03/02/16 at 21:30 Digoxin (Digoxin) 0.125 mg DAILY@13 PO ; Start 03/03/16 at 13:00 Divalproex Sodium (Depakote) 250 mg BID PO Last administered on 03/03/16 08:46 ; Admin Dose 250 MG; Start 03/02/16 at 21:00 Pantoprazole (Protonix Tab) 40 mg DAILY@06 PO Last administered on 03/03/16 06 :14; Admin Dose 40 MG; Start 03/03/16 at 06:00 Ranolazine (Ranexa) 500 mg Q12 PO Last administered on 03/03/16 08:44; Admin Dose 500 MG; Start 03/02/16 at 21:00 Tamsulosin HCl (Flomax) 0.4 mg DAILY@21 PO Last administered on 03/02/16 22:52 ; Admin Dose 0.4 MG; Start 03/02/16 at 21:00 Fenofibrate (Tricor) 145 mg DAILY PO Last administered on 03/03/16 08:45; Admin Dose 145 MG; Start 03/03/16 at 09:00 Benazepril HCl (Lotensin) 10 mg DAILY PO Last administered on 03/03/16 08:53; Admin Dose 10 MG; Start 03/03/16 at 09:00 CARLA HAMILTON MD Mar 03, 2016 13:09
--- NOTE | 2016-03-03 15:57 | PN ---
Date/Time of Note Date/Time of Note DATE: 03/03/16 TIME: 15:56 Assessment/Plan Lines/Catheters IV Catheter Type (from [facility]): Central Line Quijano in Place (from [facility]): Yes Assessment/Plan Assessment/Plan [facility] Inpatient Progress Note Date of Service: 03/03/2016 Today's Assessment & Plan: Overall stable and doing well. No major obvious postoperative complications or wound problems. No indication for acute surgical intervention. No evidence for leak or bleeding. Not surprised by some ascites leaking from the wounds given patient's cardiac problems as well as renal insufficiency. May need suturing if it doesn't stop by itself. Overall I'm very happy about patient's progress. Anticipate a few more days in the hospital prior to ability to discharge home. With above assessment, I've recommended the following for today: 1. Increase activity 2. Increase incentive spirometry 3. Discontinue Quijano catheter 4. Keep central line 5. Physical therapy 6. Advance diet as tolerated 7. Saline lock IV 8. Labs in a.m. Thank you again for your great care of this very pleasant gentleman and his wonderful family. If there are any questions, please feel free to call me at [phone]. TOTAL VISIT TIME: 20 minutes of which more than half was spent in [id number] discussion with the patient as well as coordination of care between multiple physicians and providers. Disclaimer: Inadvertent spelling and grammatical errors are likely due to EHR/ dictation software use and do not reflect on the quality of delivered patient care. Also, please note that the electronic time recorded on this node does not necessarily reflect the actual time of the visit. Updated Clinical Summary: The patient is a very pleasant 70-year-old gentleman, well known to me from prior admission in September 2015 at [facility] when he had just had back surgery and I assisted with non-operative management of concerns about chronic cholecystitis, who was readmitted to [facility] on 02/03/16 with otherwise asymptomatic gallbladder wall abnormal thickening on imaging in the setting of acute on chronic congestive heart failure, renal compromise and GI bleeding. He again stabilized enough to be able to discharge home. I had discussed his case with his chemistry professor, Dr. Shabazz and we concluded that there were no further risk reduction strategies that could be employed for his heart. Given the sig change in GB images, I recommended that we proceed with laparoscopic, possible open cholecystectomy. S/p a difficult but uncomplicated laparoscopic cholecystectomy along with intraoperative ultrasound of liver, abdominal lavage, lysis of adhesions, and reinforcement of cholecystectomy staple line on 03/02/2016. Past and present comorbidity list: 1. Severe acute on chronic cholecystitis 2. Back pain 3. CAD (coronary artery disease) 4. Decreased renal function 5. Foot swelling 6. High blood pressure 7. High blood sugar 8. History of Clostridium difficile infection 9. History of methicillin resistant staphylococcus aureus (MRSA) 10. Hypothyroidism 11. Incisional hernia 12. Serum cholesterol very high 13. Stroke 14. Weakness 15. AMPUTATION OF TOE 16. Angioplasty 17. CABG x 5 - Coronary artery bypass grafts x 5 18. Cardiac catheterization of right and left heart for ventriculography 19. Cataract 20. Colonoscopy 21. GASTRIC BYPASS FOR OBESITY 22. Arthritis Subjective: No major events or complaints; no abd pain and under control with medications; no n/v/d; no sob or cp; - flatus; - BM; - activity Objective: Vitals: See below I's & O's: See below Exam: GENERAL: On exam, the patient was lying in bed and appeared to be comfortable and in no acute distress. ABDOMEN: Soft, nontender and nondistended. Incision dressings are clean, dry and intact without any evidence of obvious underlying erythema, edema, discharge , or hernia. Surgical drain ss. There are no peritoneal signs or guarding. Minor leakage from wound is noted that appears to be clear. SKIN: Skin appears to be pink and feels warm to touch. NEUROLOGIC: Patient is awake, alert, and follows commands appropriately. Labs: See below Exam/Review of Systems Vital Signs Vitals Vital Signs Date Time Temp Pulse Resp B/P Pulse Ox O2 Delivery O2 Flow Rate FiO2 03/03/16 15:39 98.5 69 18 138/59 95 03/03/16 12:15 Nasal Cannula 2.0 Intake and Output 03/02/16 03/02/16 03/03/16 15:00 23:00 07:00 Intake Total 500 ml 970 ml 1300 ml Output Total 1010 ml 800 ml Balance 500 ml -40 ml 500 ml Results Result Diagram: 03/03/16 0611 03/03/16 0611 GLADYS MORALES M.D. Mar 03, 2016 15:57
[2016-03-03] MEDS: TAMSULOSIN (SR) 0.4 MG CAP PO SCH (21:16)
[2016-03-04] VITALS (13 sets, daily range): BP systolic 118–141; BP diastolic 58–70; PULSE 40–73; RESP 17–20
[2016-03-04] MEDS: ALBUTEROL 0.5% (NEB) 2.5 MG/0.5 ML AMP INH SCH ×6 (00:51→20:02)
[2016-03-04] MEDS: HEPARIN 5,000 UNIT/0.5 ML SYG SC SCH ×3 (02:19→17:42)
[2016-03-04] MEDS: HYDROmorphONE 1 MG/ML SYG IV PRN ×2 (02:34→05:58)
[2016-03-04] MEDS: NA PHOSPHATE/BIPHOS 133 ML ENEMA PR SCH ×2 (03:00→16:36)
[2016-03-04] MEDS: LEVOTHYROXINE 75 MCG TAB PO SCH (06:02)
[2016-03-04] MEDS: PANTOPRAZOLE (EC) 40 MG TAB PO SCH (06:02)
[2016-03-04] MEDS: FUROSEMIDE 40 MG TAB PO SCH ×2 (06:02→17:41)
[2016-03-04 06:59] LABS: ALBUMIN 2.3 g/dl (3.3-4.9); POTASSIUM 4.3 mmol/L (3.5-5.1)
[2016-03-04 07:01] LABS: BILIRUBIN,INDIRECT 0.2 mg/dl (0-1.1); BILIRUBIN,TOTAL 0.2 mg/dl (0.2-1.3); CREATININE 2.08 mg/dl (0.61-1.24)
[2016-03-04 07:02] LABS: ALBUMIN/GLOBULIN RATIO 0.74; CALCIUM 7.2 mg/dl (8.4-10.2); TOTAL PROTEIN 5.4 g/dl (6.1-8.1)
[2016-03-04] MEDS: ASPIRIN 81 MG TAB PO SCH (08:24)
[2016-03-04] MEDS: FAMOTIDINE 20 MG INJ IV SCH (08:24)
[2016-03-04] MEDS: DIVALPROEX (EC) 250 MG TAB PO SCH ×2 (08:24→20:52)
[2016-03-04] MEDS: FENOFIBRATE 145 MG TAB PO SCH (08:24)
[2016-03-04] MEDS: RANOLAZINE (SR) 500 MG TAB PO SCH ×2 (08:24→20:52)
[2016-03-04] MEDS: ALLOPURINOL 100 MG TAB PO SCH ×2 (08:25→20:53)
[2016-03-04] MEDS: BENAZEPRIL 10 MG TAB PO SCH (08:25)
[2016-03-04] MEDS ORDERED: DOCUSATE SODIUM 100 MG CAP PO SCH (09:00)
[2016-03-04] MEDS ORDERED: BISACODYL 10 MG SUPP PR SCH (09:00)
[2016-03-04 11:06] LABS: BASOPHILS % 0.5 % (0.0-2.0); EOSINOPHILS # 0.1 10^3/ul (0.0-0.5); EOSINOPHILS % 0.9 % (0.0-7.0); HEMATOCRIT 26.8 % (42.0-52.0); HEMOGLOBIN 8.9 g/dl (14.0-18.0); LYMPHOCYTES # 0.9 10^3/ul (0.8-2.9); LYMPHOCYTES % 14.4 % (15.0-51.0); MEAN CORPUSCULAR HEMOGLOBIN 29.7 pg (29.0-33.0); MEAN CORPUSCULAR HGB CONC 33.1 g/dl (32.0-37.0); MEAN CORPUSCULAR VOLUME 89.6 fl (82.0-101.0); MONOCYTE # 0.5 10^3/ul (0.3-0.9); MONOCYTES % 7.5 % (0.0-11.0); NEUTROPHILS % 76.7 % (39.0-77.0); PLATELET COUNT 200 10^3/UL (140-440); RED BLOOD COUNT 2.99 10^6/ul (4.70-6.10); RED CELL DISTRIBUTION WIDTH 25.1 % (11.5-14.5); UNCORRECTED WBC 6.6 10^3/ul (4.8-10.8); WHITE BLOOD COUNT 6.6 10^3/ul (4.8-10.8)
[2016-03-04 11:10] LABS: CONDITION 1; LH ANALYZER COMMENTS 1; SUSPECT 1
--- NOTE | 2016-03-04 11:54 | PN ---
Date/Time of Note Date/Time of Note DATE: 03/04/16 TIME: 11:50 Assessment/Plan VTE Prophylaxis VTE Prophylaxis Intervention: heparin Lines/Catheters IV Catheter Type (from Nrs): Central Line Central line still needed: Yes Urinary Cath still in place: Yes Reason Cath still needed: other (indicate) Assessment/Plan Chief Complaint/Hosp Course ASSESSMENT AND PLAN: 1. Acute on chronic cholecystitis status post laparoscopic cholecystectomy. Continue postsurgical care by Dr. Andrez [place]. Continue pain medication, antiemetic medication 2. History of coronary artery disease, status post myocardial infarction. Continue Coreg, statin, aspirin. 3. Recent history of deep venous thrombosis, status post inferior vena cava filter. At this time, patient is on heparin, which will transition to Effient. 4. Hypothyroidism. Continue levothyroxine. 5. Congestive heart failure. Continue benazepril and Coreg. 6. Seizure disorder. Continue divalproex. 7. Dyslipidemia. Continue statin. 8. End-stage renal disease on hemodialysis. Nephrology has been consulted. 9. Diabetes mellitus. Stable, with the patient on low-carb diet 10. Bradycardia. Likely secondary to medications (Coreg), will continue parameters to hold beta-ling if heart rate is less than 60, cardiology has been consulted 10. For gastrointestinal prophylaxis, on proton pump inhibitor. We will continue to monitor patient closely. Further recommendations, management, and treatment as per clinical course. Problems: Subjective 24 Hr Interval Summary Free Text/Dictation Patient denies of any chest pain or shortness of breath He was found to be bradycardic and his beta-ling was placed on hold Found to be mildly lightheaded therefore physical therapy was discontinued He is tolerating oral intake No complaints such as abdominal discomfort Exam/Review of Systems Vital Signs Vitals Vital Signs Date Time Temp Pulse Resp B/P Pulse Ox O2 Delivery O2 Flow Rate FiO2 03/04/16 10:26 41 18 98 Nasal Cannula 2.0 03/04/16 08:07 98.0 126/60 Intake and Output 03/03/16 03/03/16 03/04/16 15:00 23:00 07:00 Intake Total 640 ml 300 ml Output Total 80 ml 790 ml 600 ml Balance -80 ml -150 ml -300 ml Exam General: The patient is well-developed, Not in acute distress. HEENT: Atraumatic, normocephalic. The pupils are equal and round . Neck: Supple with full range of motion. Chest: Normal expansion of the thorax during inspiration Lungs: Clear to auscultation bilaterally, no rales or rhonchi Heart: Normal S1-S2, bradycardic Abdomen: Soft , nontender, minimally distended , bowel sounds are present. Surgical site is dry and clean, CHRIS to place Extremities: Normal to inspection, trace edema no cyanosis Neurologic: Normal mental status,The patient is awake, alert and oriented . Results Result Diagram: 03/04/16 0600 03/04/16 0600 Results 24 hrs Laboratory Tests Test 03/03/16 12:05 03/04/16 06:00 03/04/16 11:30 Urine Random Creatinine 166.49 Urine Random Sodium 17 L Alanine Aminotransferase (ALT/SGPT) 27 Albumin 2.3 L Albumin/Globulin Ratio 0.74 Alkaline Phosphatase 42 Anion Gap 15 Aspartate Amino Transf (AST/SGOT) 59 H Basophils # 0.0 Basophils % 0.5 Blood Morphology Comment Blood Urea Nitrogen 46 H Calcium Level 7.2 L Carbon Dioxide Level 28 Chloride Level 96 L Creatinine 2.08 H Direct Bilirubin 0.00 Eosinophils # 0.1 Eosinophils % 0.9 Globulin 3.10 Glucose Level 73 Hematocrit 26.8 L Hemoglobin 8.9 L Indirect Bilirubin 0.2 Lymphocytes # 0.9 Lymphocytes % 14.4 L Mean Corpuscular Hemoglobin 29.7 Mean Corpuscular Hemoglobin Concent 33.1 Mean Corpuscular Volume 89.6 Mean Platelet Volume 9.0 Monocytes # 0.5 Monocytes % 7.5 Neutrophils # 5.0 Neutrophils % 76.7 Nucleated Red Blood Cells # 0.0 Nucleated Red Blood Cells % 0.0 Platelet Count 200 Potassium Level 4.3 Red Blood Count 2.99 L Red Cell Distribution Width 25.1 H Sodium Level 135 Total Bilirubin 0.2 Total Protein 5.4 L White Blood Count 6.6 # Bedside Glucose 126 Medications Medications Current Medications Acetaminophen/ Hydrocodone Bitart ([place] (5/325)) 1 tab Q4H PRN PO PAIN LEVEL 4 -7; Start 03/02/16 at 17:00 Acetaminophen/ Hydrocodone Bitart ([place] (5/325)) 2 tab Q4H PRN PO PAIN LEVEL 7 -10; Start 03/02/16 at 17:00 Hydromorphone HCl (Dilaudid) 0.5 mg Q2H PRN IV PAIN; Start 03/02/16 at 17:00 Hydromorphone HCl (Dilaudid) 1 mg Q2H PRN IV PAIN Last administered on 05:58; Admin Dose 1 MG; Start 03/02/16 at 17:00 Docusate Sodium (Colace) 100 mg BID PRN PO CONSTIPATION; Start 03/02/16 at 17: 00 Bisacodyl (Dulcolax Supp) 10 mg BID PRN [place] CONSTIPATION; Start 03/02/16 at 17: 00 Famotidine (Pepcid Iv) 20 mg DAILY IV Last administered on 03/04/16 08:24; Admin Dose 20 MG; Start 03/03/16 at 09:00 Docusate Sodium (Colace) 100 mg BID PO ; Start 03/04/16 at 09:00; Status Future Hold Bisacodyl (Dulcolax Supp) 10 mg BID [place] ; Start 03/04/16 at 09:00; Status Future Hold Sodium Biphosphate/ Sodium Phosphate (Fleet Enema) 133 ml BID@03,15 PRN [place] CONSTIPATION; Start 03/02/16 at 18:00 Sodium Biphosphate/ Sodium Phosphate (Fleet Enema) 133 ml BID@03,15 [place] ; Start 03/04/16 at 03:00 Heparin Sodium (Porcine) (Heparin (5000 Units/0.5 ml)) 5,000 unit Q8H SC Last administered on 03/04/16 08:26; Admin Dose 5,000 UNIT; Start 03/03/16 at 09:00 ; Stop 03/05/16 at 09:00 Prasugrel (Effient) 5 mg DAILY PO ; Start 03/05/16 at 09:00 Allopurinol (Zyloprim) 100 mg BID PO Last administered on 03/04/16 08:25; Admin Dose 100 MG; Start 03/02/16 at 21:30 Aspirin (Aspirin) 81 mg DAILY PO Last administered on 03/04/16 08:24; Admin Dose 81 MG; Start 03/03/16 at 09:00 Carvedilol (Coreg) 3.125 mg BID PO Last administered on 03/04/16 08:24; Admin Dose 3.125 MG; Start 03/02/16 at 21:30 Digoxin (Digoxin) 0.125 mg DAILY@13 PO ; Start 03/03/16 at 13:00 Divalproex Sodium (Depakote) 250 mg BID PO Last administered on 03/04/16 08:24 ; Admin Dose 250 MG; Start 03/02/16 at 21:00 Pantoprazole (Protonix Tab) 40 mg DAILY@06 PO Last administered on 03/04/16 06 :02; Admin Dose 40 MG; Start 03/03/16 at 06:00 Ranolazine (Ranexa) 500 mg Q12 PO Last administered on 03/04/16 08:24; Admin Dose 500 MG; Start 03/02/16 at 21:00 Tamsulosin HCl (Flomax) 0.4 mg DAILY@21 PO Last administered on 03/03/16 21:16 ; Admin Dose 0.4 MG; Start 03/02/16 at 21:00 Fenofibrate (Tricor) 145 mg DAILY PO Last administered on 03/04/16 08:24; Admin Dose 145 MG; Start 03/03/16 at 09:00 Benazepril HCl (Lotensin) 10 mg DAILY PO Last administered on 03/04/16 08:25; Admin Dose 10 MG; Start 03/03/16 at 09:00 JS BATES MD Mar 04, 2016 11:53
[2016-03-04] MEDS: DIGOXIN 0.125 MG TAB PO SCH (14:02)
--- NOTE | 2016-03-04 16:00 | CONS ---
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 Found to be bradycardic. Mild SOB, no chest pain, able to lie supine. No palpitations, or syncope or near syncope Constitutional: no complaints Respiratory: shortness of breath Cardiovascular: no complaints Gastrointestinal: pain Musculoskeletal: no complaints Skin: no complaints Neurologic: no complaints Past Medical History Medical History: congestive heart failure, coronary artery disease, diabetes, high cholesterol, hypertension Past Surgical History Past Surgical Hx: coronary bypass surgery Family History Significant Family History: hypertension Social History Alcohol Use: none Smoking Status: Former smoker Drug Use: none Exam/Review of Systems Vital Signs Vitals Vital Signs Date Time Temp Pulse Resp B/P Pulse Ox O2 Delivery O2 Flow Rate FiO2 03/04/16 13:21 71 16 99 Nasal Cannula 2.0 03/04/16 11:53 97.6 118/58 Intake and Output 03/03/16 03/03/16 03/04/16 15:00 23:00 07:00 Intake Total 640 ml 300 ml Output Total 80 ml 790 ml 600 ml Balance -80 ml -150 ml -300 ml Exam Constitutional: alert, oriented Head: atraumatic, normocephalic Neck: jvd Respiratory: diminished breath sounds Cardiovascular: regular rate and rhythm Gastrointestinal: firm Musculoskeletal: nl extremities to inspection Extremities: normal pulses Results Result Diagram: 03/04/16 0600 03/04/16 0600 Results 24 hrs Laboratory Tests Test 03/04/16 06:00 03/04/16 11:30 Alanine Aminotransferase (ALT/SGPT) 27 Albumin 2.3 L Albumin/Globulin Ratio 0.74 Alkaline Phosphatase 42 Anion Gap 15 Aspartate Amino Transf (AST/SGOT) 59 H Basophils # 0.0 Basophils % 0.5 Blood Morphology Comment Blood Urea Nitrogen 46 H Calcium Level 7.2 L Carbon Dioxide Level 28 Chloride Level 96 L Creatinine 2.08 H Direct Bilirubin 0.00 Eosinophils # 0.1 Eosinophils % 0.9 Globulin 3.10 Glucose Level 73 Hematocrit 26.8 L Hemoglobin 8.9 L Indirect Bilirubin 0.2 Lymphocytes # 0.9 Lymphocytes % 14.4 L Mean Corpuscular Hemoglobin 29.7 Mean Corpuscular Hemoglobin Concent 33.1 Mean Corpuscular Volume 89.6 Mean Platelet Volume 9.0 Monocytes # 0.5 Monocytes % 7.5 Neutrophils # 5.0 Neutrophils % 76.7 Nucleated Red Blood Cells # 0.0 Nucleated Red Blood Cells % 0.0 Platelet Count 200 Potassium Level 4.3 Red Blood Count 2.99 L Red Cell Distribution Width 25.1 H Sodium Level 135 Total Bilirubin 0.2 Total Protein 5.4 L White Blood Count 6.6 # Bedside Glucose 126 Medications Medications Current Medications Acetaminophen/ Hydrocodone Bitart ([place] (5/325)) 1 tab Q4H PRN PO PAIN LEVEL 4 -7; Start 03/02/16 at 17:00 Acetaminophen/ Hydrocodone Bitart ([place] (5/325)) 2 tab Q4H PRN PO PAIN LEVEL 7 -10; Start 03/02/16 at 17:00 Hydromorphone HCl (Dilaudid) 0.5 mg Q2H PRN IV PAIN; Start 03/02/16 at 17:00 Hydromorphone HCl (Dilaudid) 1 mg Q2H PRN IV PAIN Last administered on 05:58; Admin Dose 1 MG; Start 03/02/16 at 17:00 Docusate Sodium (Colace) 100 mg BID PRN PO CONSTIPATION; Start 03/02/16 at 17: 00 Bisacodyl (Dulcolax Supp) 10 mg BID PRN [place] CONSTIPATION; Start 03/02/16 at 17: 00 Famotidine (Pepcid Iv) 20 mg DAILY IV Last administered on 03/04/16 08:24; Admin Dose 20 MG; Start 03/03/16 at 09:00 Docusate Sodium (Colace) 100 mg BID PO ; Start 03/04/16 at 09:00; Status Future Hold Bisacodyl (Dulcolax Supp) 10 mg BID [place] ; Start 03/04/16 at 09:00; Status Future Hold Sodium Biphosphate/ Sodium Phosphate (Fleet Enema) 133 ml BID@03,15 PRN [place] CONSTIPATION; Start 03/02/16 at 18:00 Sodium Biphosphate/ Sodium Phosphate (Fleet Enema) 133 ml BID@03,15 [place] ; Start 03/04/16 at 03:00 Heparin Sodium (Porcine) (Heparin (5000 Units/0.5 ml)) 5,000 unit Q8H SC Last administered on 03/04/16 08:26; Admin Dose 5,000 UNIT; Start 03/03/16 at 09:00 ; Stop 03/05/16 at 09:00 Prasugrel (Effient) 5 mg DAILY PO ; Start 03/05/16 at 09:00 Allopurinol (Zyloprim) 100 mg BID PO Last administered on 03/04/16 08:25; Admin Dose 100 MG; Start 03/02/16 at 21:30 Aspirin (Aspirin) 81 mg DAILY PO Last administered on 03/04/16 08:24; Admin Dose 81 MG; Start 03/03/16 at 09:00 Carvedilol (Coreg) 3.125 mg BID PO Last administered on 03/04/16 08:24; Admin Dose 3.125 MG; Start 03/02/16 at 21:30 Divalproex Sodium (Depakote) 250 mg BID PO Last administered on 03/04/16 08:24 ; Admin Dose 250 MG; Start 03/02/16 at 21:00 Pantoprazole (Protonix Tab) 40 mg DAILY@06 PO Last administered on 03/04/16 06 :02; Admin Dose 40 MG; Start 03/03/16 at 06:00 Ranolazine (Ranexa) 500 mg Q12 PO Last administered on 03/04/16 08:24; Admin Dose 500 MG; Start 03/02/16 at 21:00 Tamsulosin HCl (Flomax) 0.4 mg DAILY@21 PO Last administered on 03/03/16 21:16 ; Admin Dose 0.4 MG; Start 03/02/16 at 21:00 Fenofibrate (Tricor) 145 mg DAILY PO Last administered on 03/04/16 08:24; Admin Dose 145 MG; Start 03/03/16 at 09:00 Benazepril HCl (Lotensin) 10 mg DAILY PO Last administered on 03/04/16t 08:25; Admin Dose 10 MG; Start 03/03/16 at 09:00 LAURA MORFIN MD Mar 04, 2016 16:00
--- NOTE | 2016-03-04 19:00 | CONS ---
Date/Time of Note Date/Time of Note DATE: 03/04/16 TIME: 18:59 Assessment/Plan Assessment/Plan Chief Complaint/Hosp Course IMPRESSION: This is a 70-year-old male with: 1. Status post laparoscopic cholecystectomy, 2. chronic renal failure, stable 3. History of chronic kidney disease, possibly stage III secondary to diabetic nephropathy. 4. History of coronary artery disease. 5. History of hypertension. 6. History of diabetes mellitus. 7. History of previous hemodialysis done for acute renal failure versus acute on chronic renal failure. The patient has been able to come off from dialysis. 8. History of recent diagnosis of deep venous thrombosis at [facility] 01/2016, on Effient. 9. Status post inferior vena cava filter. plan ck labs per dr smiley Problems: Consultation Date/Type/Reason Admit Date/Time Mar 02, 2016 at 10:37 Type of Consultation: renal Referring Provider: JS BATES MD 24 HR Interval Summary Constitutional: no complaints Exam/Review of Systems Vital Signs Vitals Vital Signs Date Time Temp Pulse Resp B/P Pulse Ox O2 Delivery O2 Flow Rate FiO2 03/04/16 17:19 63 18 96 Nasal Cannula 2.0 03/04/16 16:38 97.5 126/65 Intake and Output 03/03/16 03/03/16 03/04/16 15:00 23:00 07:00 Intake Total 640 ml 300 ml Output Total 80 ml 790 ml 600 ml Balance -80 ml -150 ml -300 ml Exam Neck: supple Respiratory: clear to auscultation Cardiovascular: regular rate and rhythm Gastrointestinal: bowel sounds (+), soft Results Result Diagram: 03/04/16 0600 03/04/16 0600 Results 24 hrs Laboratory Tests Test 03/04/16 06:00 03/04/16 11:30 Alanine Aminotransferase (ALT/SGPT) 27 Albumin 2.3 L Albumin/Globulin Ratio 0.74 Alkaline Phosphatase 42 Anion Gap 15 Aspartate Amino Transf (AST/SGOT) 59 H Basophils # 0.0 Basophils % 0.5 Blood Morphology Comment Blood Urea Nitrogen 46 H Calcium Level 7.2 L Carbon Dioxide Level 28 Chloride Level 96 L Creatinine 2.08 H Digoxin Level Direct Bilirubin 0.00 Eosinophils # 0.1 Eosinophils % 0.9 Globulin 3.10 Glucose Level 73 Hematocrit 26.8 L Hemoglobin 8.9 L Indirect Bilirubin 0.2 Lymphocytes # 0.9 Lymphocytes % 14.4 L Mean Corpuscular Hemoglobin 29.7 Mean Corpuscular Hemoglobin Concent 33.1 Mean Corpuscular Volume 89.6 Mean Platelet Volume 9.0 Monocytes # 0.5 Monocytes % 7.5 Neutrophils # 5.0 Neutrophils % 76.7 Nucleated Red Blood Cells # 0.0 Nucleated Red Blood Cells % 0.0 Platelet Count 200 Potassium Level 4.3 Red Blood Count 2.99 L Red Cell Distribution Width 25.1 H Sodium Level 135 Total Bilirubin 0.2 Total Protein 5.4 L White Blood Count 6.6 # Bedside Glucose 126 Medications Medications Current Medications Acetaminophen/ Hydrocodone Bitart ([place] (5/325)) 1 tab Q4H PRN PO PAIN LEVEL 4 -7; Start 03/02/16 at 17:00 Acetaminophen/ Hydrocodone Bitart ([place] (5/325)) 2 tab Q4H PRN PO PAIN LEVEL 7 -10; Start 03/02/16 at 17:00 Hydromorphone HCl (Dilaudid) 0.5 mg Q2H PRN IV PAIN; Start 03/02/16 at 17:00 Hydromorphone HCl (Dilaudid) 1 mg Q2H PRN IV PAIN Last administered on 05:58; Admin Dose 1 MG; Start 03/02/16 at 17:00 Docusate Sodium (Colace) 100 mg BID PRN PO CONSTIPATION; Start 03/02/16 at 17: 00 Bisacodyl (Dulcolax Supp) 10 mg BID PRN [place] CONSTIPATION; Start 03/02/16 at 17: 00 Famotidine (Pepcid Iv) 20 mg DAILY IV Last administered on 03/04/16 08:24; Admin Dose 20 MG; Start 03/03/16 at 09:00 Docusate Sodium (Colace) 100 mg BID PO ; Start 03/04/16 at 09:00; Status Future Hold Bisacodyl (Dulcolax Supp) 10 mg BID [place] ; Start 03/04/16 at 09:00; Status Future Hold Sodium Biphosphate/ Sodium Phosphate (Fleet Enema) 133 ml BID@03,15 PRN [place] CONSTIPATION; Start 03/02/16 at 18:00 Sodium Biphosphate/ Sodium Phosphate (Fleet Enema) 133 ml BID@03,15 [place] Last administered on 03/04/16 16:36; Admin Dose 133 ML; Start 03/04/16 at 03:00 Heparin Sodium (Porcine) (Heparin (5000 Units/0.5 ml)) 5,000 unit Q8H SC Last administered on 03/04/16 17:42; Admin Dose 5,000 UNIT; Start 03/03/16 at 09:00 ; Stop 03/05/16 at 09:00 Prasugrel (Effient) 5 mg DAILY PO ; Start 03/05/16 at 09:00 Allopurinol (Zyloprim) 100 mg BID PO Last administered on 03/04/16 08:25; Admin Dose 100 MG; Start 03/02/16 at 21:30 Aspirin (Aspirin) 81 mg DAILY PO Last administered on 03/04/16 08:24; Admin Dose 81 MG; Start 03/03/16 at 09:00 Carvedilol (Coreg) 3.125 mg BID PO Last administered on 03/04/16 08:24; Admin Dose 3.125 MG; Start 03/02/16 at 21:30 Divalproex Sodium (Depakote) 250 mg BID PO Last administered on 03/04/16 08:24 ; Admin Dose 250 MG; Start 03/02/16 at 21:00 Pantoprazole (Protonix Tab) 40 mg DAILY@06 PO Last administered on 03/04/16 06 :02; Admin Dose 40 MG; Start 03/03/16 at 06:00 Ranolazine (Ranexa) 500 mg Q12 PO Last administered on 03/04/16 08:24; Admin Dose 500 MG; Start 03/02/16 at 21:00 Tamsulosin HCl (Flomax) 0.4 mg DAILY@21 PO Last administered on 03/03/16 21:16 ; Admin Dose 0.4 MG; Start 03/02/16 at 21:00 Fenofibrate (Tricor) 145 mg DAILY PO Last administered on 03/04/16 08:24; Admin Dose 145 MG; Start 03/03/16 at 09:00 Benazepril HCl (Lotensin) 10 mg DAILY PO Last administered on 03/04/16 08:25; Admin Dose 10 MG; Start 03/03/16 at 09:00 CARLA HAMILTON MD Mar 04, 2016 19:00
--- NOTE | 2016-03-04 19:28 | RADRPT ---
PROCEDURE: XR Chest. CLINICAL INDICATION: Shortness of breath. TECHNIQUE: Single frontal chest x-ray. COMPARISON: None available FINDINGS: The heart size is enlarged. There is mild to moderate central vascular congestion and a small to mo derate bilateral pleural effusions, larger on the right. The right internal jugular central venous catheter has its tip in the inferior aspect of the internal jugular vein. Median sternotomy wires a re in place. There is no evidence of pneumothorax. IMPRESSION: 1. Cardiomegaly with mild to moderate vascular congestion and small to moderate bilateral pleural e ffusions, larger on the right. 2. Right internal junction central venous catheter tip in the inferior aspect of the right internal jugular vein. RPTAT: QQ .Maikel Blair MD, MD Date Time Electronically viewed and signed by .Maikel Blair MD, on 03/04/2016 19:27 .A/
[2016-03-04] MEDS: TAMSULOSIN (SR) 0.4 MG CAP PO SCH (20:53)
[2016-03-05] VITALS (12 sets, daily range): BP systolic 107–141; BP diastolic 52–68; PULSE 42–57; RESP 18–20
[2016-03-05] MEDS: ALBUTEROL 0.5% (NEB) 2.5 MG/0.5 ML AMP INH SCH ×6 (01:00→20:35)
[2016-03-05] MEDS: HEPARIN 5,000 UNIT/0.5 ML SYG SC SCH ×2 (01:19→09:25)
[2016-03-05] MEDS: NA PHOSPHATE/BIPHOS 133 ML ENEMA PR SCH (03:00)
[2016-03-05 05:57] LABS: POTASSIUM 4.4 mmol/L (3.5-5.1)
[2016-03-05 05:59] LABS: CREATININE 2.38 mg/dl (0.61-1.24)
[2016-03-05 06:00] LABS: CALCIUM 7.5 mg/dl (8.4-10.2)
[2016-03-05 06:03] LABS: BASOPHIL # 0.1 10^3/ul (0.0-0.1); EOSINOPHILS # 0.1 10^3/ul (0.0-0.5); EOSINOPHILS % 1.1 % (0.0-7.0); HEMATOCRIT 26.4 % (42.0-52.0); HEMOGLOBIN 8.6 g/dl (14.0-18.0); LYMPHOCYTES # 0.8 10^3/ul (0.8-2.9); MEAN CORPUSCULAR HEMOGLOBIN 29.7 pg (29.0-33.0); MEAN CORPUSCULAR HGB CONC 32.7 g/dl (32.0-37.0); MEAN CORPUSCULAR VOLUME 90.8 fl (82.0-101.0); MEAN PLATELET VOLUME 8.8 fl (7.4-10.4); MONOCYTE # 0.5 10^3/ul (0.3-0.9); MONOCYTES % 7.9 % (0.0-11.0); PLATELET COUNT 192 10^3/UL (140-440); RED BLOOD COUNT 2.91 10^6/ul (4.70-6.10); RED CELL DISTRIBUTION WIDTH 25.5 % (11.5-14.5); UNCORRECTED WBC 6.4 10^3/ul (4.8-10.8); WHITE BLOOD COUNT 6.4 10^3/ul (4.8-10.8)
[2016-03-05 06:55] LABS: CONDITION 1; LH ANALYZER COMMENTS 1; SUSPECT 1
[2016-03-05] MEDS: PANTOPRAZOLE (EC) 40 MG TAB PO SCH (07:03)
[2016-03-05] MEDS: LEVOTHYROXINE 75 MCG TAB PO SCH (07:04)
[2016-03-05] MEDS: FUROSEMIDE 40 MG TAB PO SCH ×2 (07:04→18:45)
[2016-03-05] MEDS: RANOLAZINE (SR) 500 MG TAB PO SCH ×2 (09:16→21:12)
[2016-03-05] MEDS: ASPIRIN 81 MG TAB PO SCH (09:17)
[2016-03-05] MEDS: FENOFIBRATE 145 MG TAB PO SCH (09:17)
[2016-03-05] MEDS: ALLOPURINOL 100 MG TAB PO SCH ×2 (09:17→21:12)
[2016-03-05] MEDS: BENAZEPRIL 10 MG TAB PO SCH (09:17)
[2016-03-05] MEDS: DIVALPROEX (EC) 250 MG TAB PO SCH ×2 (09:17→21:12)
--- NOTE | 2016-03-05 09:42 | PN ---
Date/Time of Note Date/Time of Note DATE: 03/05/16 TIME: 09:40 Assessment/Plan VTE Prophylaxis VTE Prophylaxis Intervention: heparin, other Lines/Catheters IV Catheter Type (from Nrs): Central Line Central line still needed: Yes Urinary Cath still in place: Yes Reason Cath still needed: other (indicate) Assessment/Plan Chief Complaint/Hosp Course ASSESSMENT AND PLAN: 1. Acute on chronic cholecystitis status post laparoscopic cholecystectomy. Continue postsurgical care by Dr. Andrez [place]. Continue pain medication, antiemetic medication 2. History of coronary artery disease, status post myocardial infarction. Continue Coreg, statin, aspirin. 3. Recent history of deep venous thrombosis, status post inferior vena cava filter. At this time, patient is on heparin, which will transition to Effient. 4. Hypothyroidism. Continue levothyroxine. 5. Congestive heart failure. Continue benazepril and Coreg. 6. Seizure disorder. Continue divalproex. 7. Dyslipidemia. Continue statin. 8. End-stage renal disease on hemodialysis. Nephrology has been consulted. 9. Diabetes mellitus. Stable, with the patient on low-carb diet 10. Bradycardia. Likely secondary to medications (Coreg), will continue parameters to hold beta-ling if heart rate is less than 60, cardiology has been consulted 10. For gastrointestinal prophylaxis, on proton pump inhibitor. We will continue to monitor patient closely. Further recommendations, management, and treatment as per clinical course. Problems: Subjective 24 Hr Interval Summary Free Text/Dictation Patient denies of any chest pain or shortness of breath Tolerating oral intake Minimally discomfort in the abdomen and distention Exam/Review of Systems Vital Signs Vitals Vital Signs Date Time Temp Pulse Resp B/P Pulse Ox O2 Delivery O2 Flow Rate FiO2 03/05/16 08:57 57 03/05/16 08:06 97.9 18 132/63 97 03/05/16 01:00 Nasal Cannula 2.0 Intake and Output 03/04/16 03/04/16 03/05/16 15:00 23:00 07:00 Intake Total 700 ml Output Total 1375 ml 260 ml Balance -675 ml -260 ml Exam General: The patient is well-developed, Not in acute distress. HEENT: Atraumatic, normocephalic. The pupils are equal and round . Neck: Supple with full range of motion. Chest: Normal expansion of the thorax during inspiration Lungs: Clear to auscultation bilaterally Heart: Normal S1-S2, Regular rhythm and rate. Abdomen: Soft , nontender, nondistended , bowel sounds are present. Surgical site is dry and clean, CHRIS tube in place is still draining Extremities: Normal to inspection, no edema no cyanosis Neurologic: Normal mental status,The patient is awake, alert and oriented . Results Result Diagram: 03/05/16 0507 03/05/16 0507 Results 24 hrs Laboratory Tests Test 03/04/16 11:30 03/05/16 05:07 Bedside Glucose 126 Anion Gap 13 Basophils # 0.1 Basophils % 1.0 Blood Morphology Comment Blood Urea Nitrogen 53 H Calcium Level 7.5 L Carbon Dioxide Level 29 Chloride Level 95 L Creatinine 2.38 H Eosinophils # 0.1 Eosinophils % 1.1 Glucose Level 90 Hematocrit 26.4 L Hemoglobin 8.6 L Lymphocytes # 0.8 Lymphocytes % 12.0 L Mean Corpuscular Hemoglobin 29.7 Mean Corpuscular Hemoglobin Concent 32.7 Mean Corpuscular Volume 90.8 Mean Platelet Volume 8.8 Monocytes # 0.5 Monocytes % 7.9 Neutrophils # 5.0 Neutrophils % 78.0 H Nucleated Red Blood Cells # 0.0 Nucleated Red Blood Cells % 0.0 Platelet Count 192 Potassium Level 4.4 Red Blood Count 2.91 L Red Cell Distribution Width 25.5 H Sodium Level 133 L White Blood Count 6.4 Medications Medications Current Medications Acetaminophen/ Hydrocodone Bitart ([place] (5/325)) 1 tab Q4H PRN PO PAIN LEVEL 4 -7; Start 03/02/16 at 17:00 Acetaminophen/ Hydrocodone Bitart ([place] (5/325)) 2 tab Q4H PRN PO PAIN LEVEL 7 -10; Start 03/02/16 at 17:00 Hydromorphone HCl (Dilaudid) 0.5 mg Q2H PRN IV PAIN; Start 03/02/16 at 17:00 Hydromorphone HCl (Dilaudid) 1 mg Q2H PRN IV PAIN Last administered on t 05:58; Admin Dose 1 MG; Start 03/02/16 at 17:00 Docusate Sodium (Colace) 100 mg BID PRN PO CONSTIPATION; Start 03/02/16 at 17: 00 Bisacodyl (Dulcolax Supp) 10 mg BID PRN [place] CONSTIPATION; Start 03/02/16 at 17: 00 Famotidine (Pepcid Iv) 20 mg DAILY IV Last administered on 03/04/16 08:24; Admin Dose 20 MG; Start 03/03/16 at 09:00 Docusate Sodium (Colace) 100 mg BID PO ; Start 03/04/16 at 09:00; Status Future Hold Bisacodyl (Dulcolax Supp) 10 mg BID [place] ; Start 03/04/16 at 09:00; Status Future Hold Sodium Biphosphate/ Sodium Phosphate (Fleet Enema) 133 ml BID@03,15 PRN [place] CONSTIPATION; Start 03/02/16 at 18:00 Sodium Biphosphate/ Sodium Phosphate (Fleet Enema) 133 ml BID@03,15 [place] Last administered on 03/04/16 16:36; Admin Dose 133 ML; Start 03/04/16 at 03:00 Prasugrel (Effient) 5 mg DAILY PO ; Start 03/05/16 at 09:00 Allopurinol (Zyloprim) 100 mg BID PO Last administered on 03/04/16 20:53; Admin Dose 100 MG; Start 03/02/16 at 21:30 Aspirin (Aspirin) 81 mg DAILY PO Last administered on 03/04/16 08:24; Admin Dose 81 MG; Start 03/03/16 at 09:00 Carvedilol (Coreg) 3.125 mg BID PO Last administered on 03/04/16 08:24; Admin Dose 3.125 MG; Start 03/02/16 at 21:30 Divalproex Sodium (Depakote) 250 mg BID PO Last administered on 03/04/16 20:52 ; Admin Dose 250 MG; Start 03/02/16 at 21:00 Pantoprazole (Protonix Tab) 40 mg DAILY@06 PO Last administered on 03/05/16 07 :03; Admin Dose 40 MG; Start 03/03/16 at 06:00 Ranolazine (Ranexa) 500 mg Q12 PO Last administered on 03/04/16 20:52; Admin Dose 500 MG; Start 03/02/16 at 21:00 Tamsulosin HCl (Flomax) 0.4 mg DAILY@21 PO Last administered on 03/04/16 20:53 ; Admin Dose 0.4 MG; Start 03/02/16 at 21:00 Fenofibrate (Tricor) 145 mg DAILY PO Last administered on 03/04/16 08:24; Admin Dose 145 MG; Start 03/03/16 at 09:00 Benazepril HCl (Lotensin) 10 mg DAILY PO Last administered on 03/04/16 08:25; Admin Dose 10 MG; Start 03/03/16 at 09:00 JS BATES MD Mar 05, 2016 09:42
[2016-03-05] MEDS: FAMOTIDINE 20 MG INJ IV SCH (09:46)
[2016-03-05] MEDS: PRASUGREL HCL 5 MG TABLET PO SCH (09:48)
--- NOTE | 2016-03-05 14:17 | PN ---
Date/Time of Note Date/Time of Note DATE: 03/04/16 TIME: 14:15 Assessment/Plan Lines/Catheters IV Catheter Type (from Nrs): Central Line Quijano in Place (from Nrs): Yes Assessment/Plan Assessment/Plan [facility] Progress Note (late entry) Date of Service: 03/03/2016 Today's Assessment & Plan: Overall stable and doing well. No major obvious postoperative complications or wound problems. No indication for acute surgical intervention. Slight ascites leak from incisions expected and if not improved by d/c, will need extra sutures. With above assessment, I've recommended the following for today: 1. Increase activity 2. Increase incentive spirometry 3. Discontinue Quijano catheter 4. Keep central line 5. Physical therapy 6. Advance diet as tolerated 7. Diurese as needed 8. Labs in a.m 9. Resume all pre-op meds and other needed cardiac meds Thank you again for your great care of this very pleasant gentleman and his wonderful family. If there are any questions, please feel free to call me at . TOTAL VISIT TIME: 20 minutes of which more than half was spent in [id number] discussion with the patient as well as coordination of care between multiple physicians and providers. Disclaimer: Inadvertent spelling and grammatical errors are likely due to EHR/ dictation software use and do not reflect on the quality of delivered patient care. Also, please note that the electronic time recorded on this node does not necessarily reflect the actual time of the visit. Updated Clinical Summary: The patient is a very pleasant 70-year-old gentleman, well known to me from prior admission in September 2015 at [facility] when he had just had back surgery and I assisted with non-operative management of concerns about chronic cholecystitis, who was readmitted to [facility] on 02/03/16 with otherwise asymptomatic gallbladder wall abnormal thickening on imaging in the setting of acute on chronic congestive heart failure, renal compromise and GI bleeding. He again stabilized enough to be able to discharge home. I had discussed his case with his warehouse supervisor 3rd shift, Dr. Shabazz and we concluded that there were no further risk reduction strategies that could be employed for his heart. Given the sig change in GB images, I recommended that we proceed with laparoscopic, possible open cholecystectomy. S/p a difficult but uncomplicated laparoscopic cholecystectomy along with intraoperative ultrasound of liver, abdominal lavage, lysis of adhesions, and reinforcement of cholecystectomy staple line on 03/02/2016. Past and present comorbidity list: 1. Severe acute on chronic cholecystitis 2. Back pain 3. CAD (coronary artery disease) 4. Decreased renal function 5. Foot swelling 6. High blood pressure 7. High blood sugar 8. History of Clostridium difficile infection 9. History of methicillin resistant staphylococcus aureus (MRSA) 10. Hypothyroidism 11. Incisional hernia 12. Serum cholesterol very high 13. Stroke 14. Weakness 15. AMPUTATION OF TOE 16. Angioplasty 17. CABG x 5 - Coronary artery bypass grafts x 5 18. Cardiac catheterization of right and left heart for ventriculography 19. Cataract 20. Colonoscopy 21. GASTRIC BYPASS FOR OBESITY 22. Arthritis Subjective: No major events or complaints; no abd pain and under control with medications; no n/v/d; no sob or cp; + flatus; - BM; - activity; being visited by his Objective: Vitals: See below I's & O's: See below Exam: GENERAL: On exam, the patient was lying in bed and appeared to be comfortable and in no acute distress. ABDOMEN: Soft, nontender and nondistended. Incisions are clean, dry and intact without any evidence of obvious erythema, edema, discharge, or hernia. Surgical drain ss. There are no peritoneal signs or guarding. Minor leakage from wound is noted that appears to be clear. SKIN: Skin appears to be pink and feels warm to touch. NEUROLOGIC: Patient is awake, alert, and follows commands appropriately. Labs: See below Exam/Review of Systems Vital Signs Vitals Vital Signs Date Time Temp Pulse Resp B/P Pulse Ox O2 Delivery O2 Flow Rate FiO2 03/05/16 12:07 48 03/05/16 11:48 97.6 18 114/57 96 03/05/16 10:00 Nasal Cannula 2.0 Intake and Output 03/04/16 03/04/16 03/05/16 15:00 23:00 07:00 Intake Total 700 ml Output Total 1375 ml 260 ml Balance -675 ml -260 ml Results Result Diagram: 03/05/16 0507 03/05/16 0507 GLADYS MORALES M.D. Mar 05, 2016 14:17
--- NOTE | 2016-03-05 14:49 | PN ---
Date/Time of Note Date/Time of Note DATE: 03/05/16 TIME: 14:47 Assessment/Plan Lines/Catheters IV Catheter Type (from [facility]): Central Line Quijano in Place (from [facility]): Yes Assessment/Plan Assessment/Plan [facility] Progress Note Date of Service: 03/05/2016 Today's Assessment & Plan: Overall stable and doing well. No major obvious postoperative complications or wound problems. No indication for acute surgical intervention. No further ascites leak and less leg swelling reflecting effective diuresis. With above assessment, I've recommended the following for today: 1. Increase activity 2. Increase incentive spirometry 3. Keep central line 4. Physical therapy 5. Advance diet as tolerated 6. Diurese as needed 7. Labs in a.m 8. Resume all pre-op meds and other needed cardiac meds Thank you again for your great care of this very pleasant gentleman and his wonderful family. If there are any questions, please feel free to call me at [phone]. TOTAL VISIT TIME: 20 minutes of which more than half was spent in [id number] discussion with the patient as well as coordination of care between multiple physicians and providers. Disclaimer: Inadvertent spelling and grammatical errors are likely due to EHR/ dictation software use and do not reflect on the quality of delivered patient care. Also, please note that the electronic time recorded on this node does not necessarily reflect the actual time of the visit. Updated Clinical Summary: The patient is a very pleasant 70-year-old gentleman, well known to me from prior admission in September 2015 at [facility] when he had just had back surgery and I assisted with non-operative management of concerns about chronic cholecystitis, who was readmitted to [facility] on 02/03/16 with otherwise asymptomatic gallbladder wall abnormal thickening on imaging in the setting of acute on chronic congestive heart failure, renal compromise and GI bleeding. He again stabilized enough to be able to discharge home. I had discussed his case with his trucksmith, Dr. Shabazz and we concluded that there were no further risk reduction strategies that could be employed for his heart. Given the sig change in GB images, I recommended that we proceed with laparoscopic, possible open cholecystectomy. S/p a difficult but uncomplicated laparoscopic cholecystectomy along with intraoperative ultrasound of liver, abdominal lavage, lysis of adhesions, and reinforcement of cholecystectomy staple line on 03/02/2016. Past and present comorbidity list: 1. Severe acute on chronic cholecystitis 2. Back pain 3. CAD (coronary artery disease) 4. Decreased renal function 5. Foot swelling 6. High blood pressure 7. High blood sugar 8. History of Clostridium difficile infection 9. History of methicillin resistant staphylococcus aureus (MRSA) 10. Hypothyroidism 11. Incisional hernia 12. Serum cholesterol very high 13. Stroke 14. Weakness 15. AMPUTATION OF TOE 16. Angioplasty 17. CABG x 5 - Coronary artery bypass grafts x 5 18. Cardiac catheterization of right and left heart for ventriculography 19. Cataract 20. Colonoscopy 21. GASTRIC BYPASS FOR OBESITY 22. Arthritis Subjective: No major events or complaints; no abd pain and under control with medications; no n/v/d; no sob or cp; + flatus; - BM; - activity Objective: Vitals: See below I's & O's: See below Exam: GENERAL: On exam, the patient was lying in bed and appeared to be comfortable and in no acute distress. ABDOMEN: Soft, nontender and nondistended. Incisions are clean, dry and intact without any evidence of obvious erythema, edema, discharge, or hernia. Surgical drain ss. There are no peritoneal signs or guarding. No further leakage from wound noted. SKIN: Skin appears to be pink and feels warm to touch. NEUROLOGIC: Patient is awake, alert, and follows commands appropriately. Labs: See below Exam/Review of Systems Vital Signs Vitals Vital Signs Date Time Temp Pulse Resp B/P Pulse Ox O2 Delivery O2 Flow Rate FiO2 03/05/16 12:07 48 03/05/16 11:48 97.6 18 114/57 96 03/05/16 10:00 Nasal Cannula 2.0 Intake and Output 03/04/16 03/04/16 03/05/16 15:00 23:00 07:00 Intake Total 700 ml Output Total 1375 ml 260 ml Balance -675 ml -260 ml Results Result Diagram: 03/05/16 0507 03/05/16 0507 GLADYS MORALES M.D. Mar 05, 2016 14:49
--- NOTE | 2016-03-05 16:13 | CONS ---
Date/Time of Note Date/Time of Note DATE: 03/05/16 TIME: 16:11 Assessment/Plan Assessment/Plan Chief Complaint/Hosp Course IMPRESSION: This is a 70-year-old male with: 1. Status post laparoscopic cholecystectomy, 2. chronic renal failure, ON DIURETIC 3. History of chronic kidney disease, possibly stage III secondary to diabetic nephropathy. 4. History of coronary artery disease. 5. History of hypertension. 6. History of diabetes mellitus. 7. History of previous hemodialysis done for acute renal failure versus acute on chronic renal failure. The patient has been able to come off from dialysis. 8. History of recent diagnosis of deep venous thrombosis at [facility] 01/2016, on Effient. 9. Status post inferior vena cava filter. plan ck labs per dr baljit CRANE Problems: Consultation Date/Type/Reason Admit Date/Time Mar 02, 2016 at 10:37 Type of Consultation: renal Referring Provider: JS BATES MD 24 HR Interval Summary Constitutional: no complaints Exam/Review of Systems Vital Signs Vitals Vital Signs Date Time Temp Pulse Resp B/P Pulse Ox O2 Delivery O2 Flow Rate FiO2 03/05/16 15:30 98.5 50 18 141/68 99 03/05/16 10:00 Nasal Cannula 2.0 Intake and Output 03/04/16 03/04/16 03/05/16 15:00 23:00 07:00 Intake Total 700 ml Output Total 1375 ml 260 ml Balance -675 ml -260 ml Exam Neck: supple Respiratory: clear to auscultation Cardiovascular: regular rate and rhythm Gastrointestinal: bowel sounds (+), soft Extremities: edema (LESS) Results Result Diagram: 03/05/16 0507 03/05/16 0507 Results 24 hrs Laboratory Tests Test 03/05/16 05:07 Anion Gap 13 Basophils # 0.1 Basophils % 1.0 Blood Morphology Comment Blood Urea Nitrogen 53 H Calcium Level 7.5 L Carbon Dioxide Level 29 Chloride Level 95 L Creatinine 2.38 H Eosinophils # 0.1 Eosinophils % 1.1 Glucose Level 90 Hematocrit 26.4 L Hemoglobin 8.6 L Lymphocytes # 0.8 Lymphocytes % 12.0 L Mean Corpuscular Hemoglobin 29.7 Mean Corpuscular Hemoglobin Concent 32.7 Mean Corpuscular Volume 90.8 Mean Platelet Volume 8.8 Monocytes # 0.5 Monocytes % 7.9 Neutrophils # 5.0 Neutrophils % 78.0 H Nucleated Red Blood Cells # 0.0 Nucleated Red Blood Cells % 0.0 Platelet Count 192 Potassium Level 4.4 Red Blood Count 2.91 L Red Cell Distribution Width 25.5 H Sodium Level 133 L White Blood Count 6.4 Medications Medications Current Medications Acetaminophen/ Hydrocodone Bitart ([place] (5/325)) 1 tab Q4H PRN PO PAIN LEVEL 4 -7; Start 03/02/16 at 17:00 Acetaminophen/ Hydrocodone Bitart ([place] (5/325)) 2 tab Q4H PRN PO PAIN LEVEL 7 -10 Last administered on 03/05/16 09:15; Admin Dose 2 TAB; Start 03/02/16 at 17 :00 Hydromorphone HCl (Dilaudid) 0.5 mg Q2H PRN IV PAIN; Start 03/02/16 at 17:00 Hydromorphone HCl (Dilaudid) 1 mg Q2H PRN IV PAIN Last administered on 05:58; Admin Dose 1 MG; Start 03/02/16 at 17:00 Docusate Sodium (Colace) 100 mg BID PRN PO CONSTIPATION; Start 03/02/16 at 17: 00 Bisacodyl (Dulcolax Supp) 10 mg BID PRN [place] CONSTIPATION; Start 03/02/16 at 17: 00 Famotidine (Pepcid Iv) 20 mg DAILY IV Last administered on 03/05/16 09:46; Admin Dose 20 MG; Start 03/03/16 at 09:00 Docusate Sodium (Colace) 100 mg BID PO ; Start 03/04/16 at 09:00; Status Future Hold Bisacodyl (Dulcolax Supp) 10 mg BID [place] ; Start 03/04/16 at 09:00; Status Future Hold Sodium Biphosphate/ Sodium Phosphate (Fleet Enema) 133 ml BID@03,15 PRN [place] CONSTIPATION; Start 03/02/16 at 18:00 Prasugrel (Effient) 5 mg DAILY PO Last administered on 03/05/16 09:48; Admin Dose 5 MG; Start 03/05/16 at 09:00 Allopurinol (Zyloprim) 100 mg BID PO Last administered on 03/05/16 09:17; Admin Dose 100 MG; Start 03/02/16 at 21:30 Aspirin (Aspirin) 81 mg DAILY PO Last administered on 03/05/16 09:17; Admin Dose 81 MG; Start 03/03/16 at 09:00 Carvedilol (Coreg) 3.125 mg BID PO Last administered on 03/04/16 08:24; Admin Dose 3.125 MG; Start 03/02/16 at 21:30 Divalproex Sodium (Depakote) 250 mg BID PO Last administered on 03/05/16 09:17 ; Admin Dose 250 MG; Start 03/02/16 at 21:00 Pantoprazole (Protonix Tab) 40 mg DAILY@06 PO Last administered on 03/05/16 07 :03; Admin Dose 40 MG; Start 03/03/16 at 06:00 Ranolazine (Ranexa) 500 mg Q12 PO Last administered on 03/05/16 09:16; Admin Dose 500 MG; Start 03/02/16 at 21:00 Tamsulosin HCl (Flomax) 0.4 mg DAILY@21 PO Last administered on 03/04/16 20:53 ; Admin Dose 0.4 MG; Start 03/02/16 at 21:00 Fenofibrate (Tricor) 145 mg DAILY PO Last administered on 03/05/16 09:17; Admin Dose 145 MG; Start 03/03/16 at 09:00 Benazepril HCl (Lotensin) 10 mg DAILY PO Last administered on 03/05/16 09:17; Admin Dose 10 MG; Start 03/03/16 at 09:00 CARLA HAMILTON MD Mar 05, 2016 16:12
--- NOTE | 2016-03-05 18:18 | CONS ---
Date/Time of Note Date/Time of Note DATE: 03/05/16 TIME: 18:14 Assessment/Plan Assessment/Plan Additional Assessment/Plan Cholecystitis status post surgery Acute decompensated systolic congestive heart failure Cardiomyopathy Acute kidney injury with history of CKD Coronary artery disease Hypertension Sinus bradycardia, asymptomatic -Patient denies shortness of breath and feeling better. Renal function continues to worsen. Patient being followed by nephrology, would consider holding MISTI inhibitor and adjusting dosage of diuretics if renal function worsens. Echocardiogram results pending. Would order chest x-ray for a.m. Consultation Date/Type/Reason Admit Date/Time Mar 02, 2016 at 10:37 Initial Consult Date 03/04/16 Type of Consultation: cv Referring Provider: JS BATES MD 24 HR Interval Summary Free Text/Dictation Patient denies shortness of breath, chest pain or palpitations Exam/Review of Systems Vital Signs Vitals Vital Signs Date Time Temp Pulse Resp B/P Pulse Ox O2 Delivery O2 Flow Rate FiO2 03/05/16 17:41 63 20 91 21 03/05/16 15:30 98.5 141/68 03/05/16 10:00 Nasal Cannula 2.0 Intake and Output 03/04/16 03/04/16 03/05/16 14:59 22:59 06:59 Intake Total 700 ml Output Total 1375 ml 260 ml Balance -675 ml -260 ml Exam No apparent distress, lying in bed Constitutional: alert, oriented Head: normocephalic Neck: supple Respiratory: other (course breath sounds bilaterally, no wheezing) Cardiovascular: other (S1 and S2 heard), regular rate and rhythm Gastrointestinal: bowel sounds, non-tender, soft Extremities: edema (trace) Results Result Diagram: 03/05/16 0507 03/05/16 0507 Results 24 hrs Laboratory Tests Test 03/05/16 05:07 Anion Gap 13 Basophils # 0.1 Basophils % 1.0 Blood Morphology Comment Blood Urea Nitrogen 53 H Calcium Level 7.5 L Carbon Dioxide Level 29 Chloride Level 95 L Creatinine 2.38 H Eosinophils # 0.1 Eosinophils % 1.1 Glucose Level 90 Hematocrit 26.4 L Hemoglobin 8.6 L Lymphocytes # 0.8 Lymphocytes % 12.0 L Mean Corpuscular Hemoglobin 29.7 Mean Corpuscular Hemoglobin Concent 32.7 Mean Corpuscular Volume 90.8 Mean Platelet Volume 8.8 Monocytes # 0.5 Monocytes % 7.9 Neutrophils # 5.0 Neutrophils % 78.0 H Nucleated Red Blood Cells # 0.0 Nucleated Red Blood Cells % 0.0 Platelet Count 192 Potassium Level 4.4 Red Blood Count 2.91 L Red Cell Distribution Width 25.5 H Sodium Level 133 L White Blood Count 6.4 Medications Medications Current Medications Acetaminophen/ Hydrocodone Bitart ([place] (5/325)) 1 tab Q4H PRN PO PAIN LEVEL 4 -7; Start 03/02/16 at 17:00 Acetaminophen/ Hydrocodone Bitart ([place] (5/325)) 2 tab Q4H PRN PO PAIN LEVEL 7 -10 Last administered on 03/05/16 09:15; Admin Dose 2 TAB; Start 03/02/16 at 17 :00 Hydromorphone HCl (Dilaudid) 0.5 mg Q2H PRN IV PAIN; Start 03/02/16 at 17:00 Hydromorphone HCl (Dilaudid) 1 mg Q2H PRN IV PAIN Last administered on 05:58; Admin Dose 1 MG; Start 03/02/16 at 17:00 Docusate Sodium (Colace) 100 mg BID PRN PO CONSTIPATION; Start 03/02/16 at 17: 00 Bisacodyl (Dulcolax Supp) 10 mg BID PRN [place] CONSTIPATION; Start 03/02/16 at 17: 00 Famotidine (Pepcid Iv) 20 mg DAILY IV Last administered on 03/05/16 09:46; Admin Dose 20 MG; Start 03/03/16 at 09:00 Docusate Sodium (Colace) 100 mg BID PO ; Start 03/04/16 at 09:00; Status Future Hold Bisacodyl (Dulcolax Supp) 10 mg BID [place] ; Start 03/04/16 at 09:00; Status Future Hold Sodium Biphosphate/ Sodium Phosphate (Fleet Enema) 133 ml BID@03,15 PRN [place] CONSTIPATION; Start 03/02/16 at 18:00 Prasugrel (Effient) 5 mg DAILY PO Last administered on 03/05/16 09:48; Admin Dose 5 MG; Start 03/05/16 at 09:00 Allopurinol (Zyloprim) 100 mg BID PO Last administered on 03/05/16 09:17; Admin Dose 100 MG; Start 03/02/16 at 21:30 Aspirin (Aspirin) 81 mg DAILY PO Last administered on 03/05/16 09:17; Admin Dose 81 MG; Start 03/03/16 at 09:00 Carvedilol (Coreg) 3.125 mg BID PO Last administered on 03/04/16 08:24; Admin Dose 3.125 MG; Start 03/02/16 at 21:30 Divalproex Sodium (Depakote) 250 mg BID PO Last administered on 03/05/16 09:17 ; Admin Dose 250 MG; Start 03/02/16 at 21:00 Pantoprazole (Protonix Tab) 40 mg DAILY@06 PO Last administered on 03/05/16 07 :03; Admin Dose 40 MG; Start 03/03/16 at 06:00 Ranolazine (Ranexa) 500 mg Q12 PO Last administered on 03/05/16 09:16; Admin Dose 500 MG; Start 03/02/16 at 21:00 Tamsulosin HCl (Flomax) 0.4 mg DAILY@21 PO Last administered on 03/04/16 20:53 ; Admin Dose 0.4 MG; Start 03/02/16 at 21:00 Fenofibrate (Tricor) 145 mg DAILY PO Last administered on 03/05/16 09:17; Admin Dose 145 MG; Start 03/03/16 at 09:00 Benazepril HCl (Lotensin) 10 mg DAILY PO Last administered on 03/05/16 09:17; Admin Dose 10 MG; Start 03/03/16 at 09:00 Chriss Rosario DO Mar 05, 2016 18:18
--- NOTE | 2016-03-05 19:12 | RADRPT ---
Echocardiogram Report Patient Name: NATHALIA HOPE Gender: Male Date: 1945 Study Date: 05-Mar-2016 [place] Tier: Tres Location: 504 Ref. Physician: LAURA MORFIN Quality: Technically Difficult Study Procedures: Transthoracic echocardiogram with complete 2D, M-Mode, and doppler examination. Indications: Bradycardia. 2D/M Mode Doppler Measurement Value Normal Ranges Measurement Value Normal Ranges LVIDd 2D 6.7 3.5 - 5.6 cm CONNIE Vmax 1.0 cm2 LVIDs 2D 4.2 2.1 - 4.1 cm CONNIE VTI 1.0 cm2 FS 2D 36.8 % AV Mean Blas 1.8 m/sec LVPWd 2D 1.3 0.6 - 1.1 cm AV Mean PG 14.0 mmHg IVSd 2D 1.4 0.6 - 1.1 cm AV Peak Blas 2.5 m/sec IVS/LVPW 2D 1.1 AV Peak PG 24.0 mmHg AoR Diam 2D 3.1 2.0 - 3.7 cm AV VTI 54.0 cm LA/Ao 2D 2 0 - 1 LVOT Mean Blas 0.7 m/sec EDV 2D 295.0 cm3 LVOT Mean PG 2.0 mmHg ESV 2D 74.6 cm3 LVOT Peak Blas 1.0 m/sec LA Dimen 2D 5.3 2.3 - 4.0 cm LVOT Peak PG 4.0 mmHg LVOT Diam 1.8 cm LVOT VTI 20.9 cm LVOT Area 2.5 cm2 MV E Peak Blas 1.1 m/sec MV A Peak Blas 0.6 m/sec MV E/A 1.8 MV Decel Time 243 msec MV E/A 1.8 TR Peak Blas 3.6 m/sec TR Peak PG 52.0 mmHg Findings Left Ventricle: Lower limits of normal systolic function. Mild concentric left ventricular hypertrophy. Mild enlargement of left ventricle cavity. Ejection fraction is visually estimated at 50 %. Abnormal Diastolic Function. Right Ventricle: Normal right ventricular systolic function. Mild enlargement of right ventricle. Left Atrium: There is moderate enlargement of left atrium. Right Atrium: Right atrium at upper limits of normal. Mitral Valve: Mild mitral leaflet calcification. Mild mitral annular calcification. Mild mitral valve regurgitation. Aortic Valve: Mild aortic stenosis. Aortic cusps appear moderately calcified. Trace aortic valve regurgitation. Tricuspid Valve: Normal appearance of the tricuspid valve. Estimated peak PA systolic pressure 67 mmHg. There is mild to moderate tricuspid regurgitation. Pulmonic Valve: Pulmonic valve not well visualized. There is mild pulmonic regurgitation. Pericardium: Normal pericardium with no significant pericardial effusion. Aorta: Normal aortic root. IVC: Dilated inferior vena cava with poor inspiratory collapse consistent with elevated right atrial pressures. Conclusions Lower limits of normal systolic function. Mild concentric left ventricular hypertrophy. Mild enlargement of left ventricle cavity. Ejection fraction is visually estimated at 50 %. Abnormal Diastolic Function. Normal right ventricular systolic function. Mild enlargement of right ventricle. There is moderate enlargement of left atrium. Right atrium at upper limits of normal. Estimated peak PA systolic pressure 67 mmHg. There is mild to moderate tricuspid regurgitation. Mild aortic stenosis. Trace aortic valve regurgitation. Mild mitral valve regurgitation. Normal pericardium with no significant pericardial effusion. Electronically Signed By: Chriss Rosario 05-Mar-2016 19:11:24 -0800 Patient Name: NATHALIA HOPE Study Date: 05-Mar-2016 [id number]
[2016-03-05] MEDS: TAMSULOSIN (SR) 0.4 MG CAP PO SCH (21:12)
[2016-03-06] VITALS (13 sets, daily range): BP systolic 144–175; BP diastolic 64–83; PULSE 66–76; RESP 14–20
[2016-03-06] MEDS: ALBUTEROL 0.5% (NEB) 2.5 MG/0.5 ML AMP INH SCH ×7 (05:20→21:24)
[2016-03-06] MEDS: FUROSEMIDE 40 MG TAB PO SCH ×2 (06:04→17:16)
[2016-03-06] MEDS: LEVOTHYROXINE 75 MCG TAB PO SCH (06:05)
[2016-03-06] MEDS: PANTOPRAZOLE (EC) 40 MG TAB PO SCH (06:05)
[2016-03-06] MEDS: RANOLAZINE (SR) 500 MG TAB PO SCH ×2 (08:06→21:13)
[2016-03-06] MEDS: PRASUGREL HCL 5 MG TABLET PO SCH (08:06)
[2016-03-06] MEDS: DIVALPROEX (EC) 250 MG TAB PO SCH (08:06)
[2016-03-06] MEDS: FENOFIBRATE 145 MG TAB PO SCH (08:06)
[2016-03-06] MEDS: ALLOPURINOL 100 MG TAB PO SCH ×2 (08:06→21:14)
[2016-03-06] MEDS: FAMOTIDINE 20 MG INJ IV SCH (08:06)
[2016-03-06] MEDS: ASPIRIN 81 MG TAB PO SCH (08:06)
[2016-03-06] MEDS: BENAZEPRIL 10 MG TAB PO SCH (08:07)
[2016-03-06 08:10] LABS: POTASSIUM 4.3 mmol/L (3.5-5.1)
[2016-03-06 08:13] LABS: CREATININE 2.22 mg/dl (0.61-1.24)
[2016-03-06 08:14] LABS: CALCIUM 7.6 mg/dl (8.4-10.2)
[2016-03-06 08:19] LABS: BASOPHILS % 0.5 % (0.0-2.0); EOSINOPHILS # 0.1 10^3/ul (0.0-0.5); EOSINOPHILS % 1.7 % (0.0-7.0); HEMATOCRIT 27.9 % (42.0-52.0); HEMOGLOBIN 9.3 g/dl (14.0-18.0); LYMPHOCYTES # 0.9 10^3/ul (0.8-2.9); MEAN CORPUSCULAR HEMOGLOBIN 29.8 pg (29.0-33.0); MEAN CORPUSCULAR HGB CONC 33.4 g/dl (32.0-37.0); MEAN PLATELET VOLUME 8.9 fl (7.4-10.4); MONOCYTE # 0.5 10^3/ul (0.3-0.9); MONOCYTES % 8.3 % (0.0-11.0); NEUTROPHIL # 4.9 10^3/ul (1.6-7.5); NEUTROPHILS % 75.5 % (39.0-77.0); PLATELET COUNT 231 10^3/UL (140-440); RED BLOOD COUNT 3.13 10^6/ul (4.70-6.10); RED CELL DISTRIBUTION WIDTH 25.1 % (11.5-14.5); UNCORRECTED WBC 6.5 10^3/ul (4.8-10.8); WHITE BLOOD COUNT 6.5 10^3/ul (4.8-10.8)
[2016-03-06 08:33] LABS: CONDITION 1; LH ANALYZER COMMENTS 1; SUSPECT 1
--- NOTE | 2016-03-06 09:21 | RADRPT ---
PROCEDURE: XR Chest AP portable CLINICAL INDICATION: Chronic cholecystitis, CHF TECHNIQUE: An AP portable radiograph of the chest was submitted. COMPARISON: 03/04/2016 FINDINGS: Support Hardware: A right jugular central venous catheter is again evident with the tip at the junct ion of the right jugular and innominate veins. Cardiovascular: There is again evidence of a previous midline sternotomy. The heart size has decrea sed and is mildly enlarged with the piriform plantar vasculature unremarkable. Lung Lainez: Infiltrate or atelectasis is seen at both lung bases, improved particularly on the left . Pleural Spaces: Small bilateral pleural fluid accumulations are suspected. There is no pneumothorax evident. Osseous Structures: The osseous structures appear intact. Soft Tissues: The soft tissues appear unremarkable. IMPRESSION: 1. The right jugular central venous catheter tip remains at the junction of the right jugular vein and right innominate vein. 2. Previous midline sternotomy. The heart is decreased in size and is now mildly enlarged, pulmona ry vasculature is within normal limits. 3. Persistent atelectasis or infiltrate involving the lung bases with the suggestion of small bilat eral pleural fluid accumulations. Physician Willa Date Time Electronically viewed and signed by Physician Willa on 03/06/2016 09:21 /
--- NOTE | 2016-03-06 11:52 | CONS ---
Date/Time of Note Date/Time of Note DATE: 03/06/16 TIME: 11:50 Assessment/Plan Assessment/Plan Additional Assessment/Plan Cholecystitis status post surgery Acute decompensated systolic congestive heart failure Cardiomyopathy Acute kidney injury with history of CKD Coronary artery disease Hypertension Sinus bradycardia, asymptomatic -Renal function improving, blood pressure remains elevated, we'll start Isordil. Given bradycardia, would not increase dose of Coreg. Patient tells me he did have a cardiac stent placed earlier last year, he has been on Effient for that reason, would adjust dosing to 10 mg daily. PT eval for ambulation Consultation Date/Type/Reason Admit Date/Time Mar 02, 2016 at 10:37 Initial Consult Date 03/04/16 Type of Consultation: cv Referring Provider: JS BATSE MD 24 HR Interval Summary Free Text/Dictation Patient denies shortness of breath, chest pain or palpitations Exam/Review of Systems Vital Signs Vitals Vital Signs Date Time Temp Pulse Resp B/P Pulse Ox O2 Delivery O2 Flow Rate FiO2 03/06/16 11:48 97.7 67 20 147/64 99 03/06/16 08:44 Nasal Cannula 2.0 03/05/16 17:41 21 Intake and Output 03/05/16 03/05/16 03/06/16 15:00 23:00 07:00 Intake Total 650 ml Output Total 910 ml 150 ml Balance -260 ml -150 ml Exam No apparent distress Constitutional: alert, oriented Head: normocephalic Neck: supple Respiratory: other (course breath sounds bilaterally, no wheezing) Cardiovascular: other (S1-S2 heard), regular rate and rhythm Gastrointestinal: bowel sounds, non-tender, soft Extremities: edema Results Result Diagram: 03/06/16 0555 03/06/16 0555 Results 24 hrs Laboratory Tests Test 03/06/16 05:55 Anion Gap 14 Basophils # 0.0 Basophils % 0.5 Blood Morphology Comment Blood Urea Nitrogen 55 H Calcium Level 7.6 L Carbon Dioxide Level 29 Chloride Level 96 L Creatinine 2.22 H Eosinophils # 0.1 Eosinophils % 1.7 Glucose Level 71 Hematocrit 27.9 L Hemoglobin 9.3 L Lymphocytes # 0.9 Lymphocytes % 14.0 L Mean Corpuscular Hemoglobin 29.8 Mean Corpuscular Hemoglobin Concent 33.4 Mean Corpuscular Volume 89.0 Mean Platelet Volume 8.9 Monocytes # 0.5 Monocytes % 8.3 Neutrophils # 4.9 Neutrophils % 75.5 Nucleated Red Blood Cells # 0.0 Nucleated Red Blood Cells % 0.0 Platelet Count 231 # Potassium Level 4.3 Red Blood Count 3.13 L Red Cell Distribution Width 25.1 H Sodium Level 135 White Blood Count 6.5 Medications Medications Current Medications Acetaminophen/ Hydrocodone Bitart ([place] (5/325)) 1 tab Q4H PRN PO PAIN LEVEL 4 -7; Start 03/02/16 at 17:00 Acetaminophen/ Hydrocodone Bitart ([place] (5/325)) 2 tab Q4H PRN PO PAIN LEVEL 7 -10 Last administered on 03/05/16 09:15; Admin Dose 2 TAB; Start 03/02/16 at 17 :00 Hydromorphone HCl (Dilaudid) 0.5 mg Q2H PRN IV PAIN; Start 03/02/16 at 17:00 Hydromorphone HCl (Dilaudid) 1 mg Q2H PRN IV PAIN Last administered on 05:58; Admin Dose 1 MG; Start 03/02/16 at 17:00 Docusate Sodium (Colace) 100 mg BID PRN PO CONSTIPATION; Start 03/02/16 at 17: 00 Bisacodyl (Dulcolax Supp) 10 mg BID PRN [place] CONSTIPATION; Start 03/02/16 at 17: 00 Famotidine (Pepcid Iv) 20 mg DAILY IV Last administered on 03/06/16 08:06; Admin Dose 20 MG; Start 03/03/16 at 09:00 Docusate Sodium (Colace) 100 mg BID PO ; Start 03/04/16 at 09:00; Status Future Hold Bisacodyl (Dulcolax Supp) 10 mg BID ID ; Start 03/04/16 at 09:00; Status Future Hold Sodium Biphosphate/ Sodium Phosphate (Fleet Enema) 133 ml BID@03,15 PRN [place] CONSTIPATION; Start 03/02/16 at 18:00 Prasugrel (Effient) 5 mg DAILY PO Last administered on 03/06/16 08:06; Admin Dose 5 MG; Start 03/05/16 at 09:00 Allopurinol (Zyloprim) 100 mg BID PO Last administered on 03/06/16 08:06; Admin Dose 100 MG; Start 03/02/16 at 21:30 Aspirin (Aspirin) 81 mg DAILY PO Last administered on 03/06/16 08:06; Admin Dose 81 MG; Start 03/03/16 at 09:00 Carvedilol (Coreg) 3.125 mg BID PO Last administered on 03/06/16 08:06; Admin Dose 3.125 MG; Start 03/02/16 at 21:30 Divalproex Sodium (Depakote) 250 mg BID PO Last administered on 03/06/16 08:06 ; Admin Dose 250 MG; Start 03/02/16 at 21:00 Pantoprazole (Protonix Tab) 40 mg DAILY@06 PO Last administered on 03/06/16 06 :05; Admin Dose 40 MG; Start 03/03/16 at 06:00 Ranolazine (Ranexa) 500 mg Q12 PO Last administered on 03/06/16 08:06; Admin Dose 500 MG; Start 03/02/16 at 21:00 Tamsulosin HCl (Flomax) 0.4 mg DAILY@21 PO Last administered on 03/05/16 21:12 ; Admin Dose 0.4 MG; Start 03/02/16 at 21:00 Fenofibrate (Tricor) 145 mg DAILY PO Last administered on 03/06/16 08:06; Admin Dose 145 MG; Start 03/03/16 at 09:00 Benazepril HCl (Lotensin) 10 mg DAILY PO Last administered on 03/06/16 08:07; Admin Dose 10 MG; Start 03/03/16 at 09:00 Chriss Rosario DO Mar 06, 2016 11:52
[2016-03-06] MEDS: ISOSORBIDE DINITRATE 5 MG TAB PO SCH ×2 (12:30→21:17)
--- NOTE | 2016-03-06 13:41 | CONS ---
Date/Time of Note Date/Time of Note DATE: 03/06/16 TIME: 13:38 Assessment/Plan Assessment/Plan Chief Complaint/Hosp Course ASSESSMENT AND PLAN: 1. Acute on chronic cholecystitis status post laparoscopic cholecystectomy. Continue postsurgical care by Dr. Gladys Morales. Continue pain medication, antiemetic medication 2. History of coronary artery disease, status post myocardial infarction. Continue Coreg, statin, aspirin. 3. Recent history of deep venous thrombosis, status post inferior vena cava filter. At this time, patient is on heparin, which will transition to Effient. 4. Hypothyroidism. Continue levothyroxine. 5. Congestive heart failure. Continue benazepril and Coreg. 6. Chronic depression. Continue divalproex every afternoon. 7. Dyslipidemia. Continue statin. 8. End-stage renal disease on hemodialysis. Nephrology has been consulted. 9. Diabetes mellitus. Stable, with the patient on low-carb diet 10. Bradycardia. Likely secondary to medications (Coreg), will continue parameters to hold beta-ling if heart rate is less than 60, cardiology has been consulted 10. For gastrointestinal prophylaxis, on proton pump inhibitor. We will continue to monitor patient closely. Further recommendations, management, and treatment as per clinical course. Problems: Consultation Date/Type/Reason Admit Date/Time Mar 02, 2016 at 10:37 Initial Consult Date 03/02/16 Type of Consultation: cv Referring Provider: GLADYS MORALES M.D. 24 HR Interval Summary Free Text/Dictation Patient denies of any chest pain or shortness of breath Complains of being more tired than usual Tolerating oral intake Exam/Review of Systems Vital Signs Vitals Vital Signs Date Time Temp Pulse Resp B/P Pulse Ox O2 Delivery O2 Flow Rate FiO2 03/06/16 12:04 67 03/06/16 12:03 20 99 Nasal Cannula 2.0 03/06/16 11:48 97.7 147/64 03/05/16 17:41 21 Intake and Output 03/05/16 03/05/16 03/06/16 14:59 22:59 06:59 Intake Total 600 ml 650 ml Output Total 1000 ml 910 ml 80 ml Balance -400 ml -260 ml -80 ml Exam General: The patient is well-developed, Not in acute distress. HEENT: Atraumatic, normocephalic. The pupils are equal and round . Neck: Supple with full range of motion. Chest: Normal expansion of the thorax during inspiration Lungs: Clear to auscultation bilaterally Heart: Normal S1-S2, Regular rhythm and rate. Abdomen: Soft , nontender, nondistended , bowel sounds are present. Surgical site is dry and clean, CHRIS tube in place Extremities: Normal to inspection, trace edema no cyanosis Neurologic: ,The patient is awake, alert and oriented . Results Result Diagram: 03/06/16 0555 03/06/16 0555 Results 24 hrs Laboratory Tests Test 03/06/16 05:55 Anion Gap 14 Basophils # 0.0 Basophils % 0.5 Blood Morphology Comment Blood Urea Nitrogen 55 H Calcium Level 7.6 L Carbon Dioxide Level 29 Chloride Level 96 L Creatinine 2.22 H Eosinophils # 0.1 Eosinophils % 1.7 Glucose Level 71 Hematocrit 27.9 L Hemoglobin 9.3 L Lymphocytes # 0.9 Lymphocytes % 14.0 L Mean Corpuscular Hemoglobin 29.8 Mean Corpuscular Hemoglobin Concent 33.4 Mean Corpuscular Volume 89.0 Mean Platelet Volume 8.9 Monocytes # 0.5 Monocytes % 8.3 Neutrophils # 4.9 Neutrophils % 75.5 Nucleated Red Blood Cells # 0.0 Nucleated Red Blood Cells % 0.0 Platelet Count 231 # Potassium Level 4.3 Red Blood Count 3.13 L Red Cell Distribution Width 25.1 H Sodium Level 135 White Blood Count 6.5 Medications Medications Current Medications Acetaminophen/ Hydrocodone Bitart ([place] (5/325)) 1 tab Q4H PRN PO PAIN LEVEL 4 -7; Start 03/02/16 at 17:00 Acetaminophen/ Hydrocodone Bitart ([place] (5/325)) 2 tab Q4H PRN PO PAIN LEVEL 7 -10 Last administered on 03/05/16 09:15; Admin Dose 2 TAB; Start 03/02/16 at 17 :00 Hydromorphone HCl (Dilaudid) 0.5 mg Q2H PRN IV PAIN; Start 03/02/16 at 17:00 Hydromorphone HCl (Dilaudid) 1 mg Q2H PRN IV PAIN Last administered on 05:58; Admin Dose 1 MG; Start 03/02/16 at 17:00 Docusate Sodium (Colace) 100 mg BID PRN PO CONSTIPATION; Start 03/02/16 at 17: 00 Bisacodyl (Dulcolax Supp) 10 mg BID PRN [place] CONSTIPATION; Start 03/02/16 at 17: 00 Famotidine (Pepcid Iv) 20 mg DAILY IV Last administered on 03/06/16 08:06; Admin Dose 20 MG; Start 03/03/16 at 09:00 Docusate Sodium (Colace) 100 mg BID PO ; Start 03/04/16 at 09:00; Status Future Hold Bisacodyl (Dulcolax Supp) 10 mg BID [place] ; Start 03/04/16 at 09:00; Status Future Hold Sodium Biphosphate/ Sodium Phosphate (Fleet Enema) 133 ml BID@03,15 PRN [place] CONSTIPATION; Start 03/02/16 at 18:00 Allopurinol (Zyloprim) 100 mg BID PO Last administered on 03/06/16 08:06; Admin Dose 100 MG; Start 03/02/16 at 21:30 Aspirin (Aspirin) 81 mg DAILY PO Last administered on 03/06/16 08:06; Admin Dose 81 MG; Start 03/03/16 at 09:00 Carvedilol (Coreg) 3.125 mg BID PO Last administered on 03/06/16 08:06; Admin Dose 3.125 MG; Start 03/02/16 at 21:30 Divalproex Sodium (Depakote) 250 mg BID PO Last administered on 03/06/16 08:06 ; Admin Dose 250 MG; Start 03/02/16 at 21:00 Pantoprazole (Protonix Tab) 40 mg DAILY@06 PO Last administered on 03/06/16 06 :05; Admin Dose 40 MG; Start 03/03/16 at 06:00 Ranolazine (Ranexa) 500 mg Q12 PO Last administered on 03/06/16 08:06; Admin Dose 500 MG; Start 03/02/16 at 21:00 Tamsulosin HCl (Flomax) 0.4 mg DAILY@21 PO Last administered on 03/05/16 21:12 ; Admin Dose 0.4 MG; Start 03/02/16 at 21:00 Fenofibrate (Tricor) 145 mg DAILY PO Last administered on 03/06/16 08:06; Admin Dose 145 MG; Start 03/03/16 at 09:00 Benazepril HCl (Lotensin) 10 mg DAILY PO Last administered on 03/06/16 08:07; Admin Dose 10 MG; Start 03/03/16 at 09:00 Isosorbide Dinitrate (Isordil) 5 mg TID PO Last administered on 03/06/16 12:30 ; Admin Dose 5 MG; Start 03/06/16 at 13:00 Prasugrel (Effient) 10 mg DAILY PO ; Start 03/07/16 at 09:00 JS BATES MD Mar 06, 2016 13:40
--- NOTE | 2016-03-06 17:14 | PN ---
Date/Time of Note Date/Time of Note DATE: 03/06/16 TIME: 17:12 Assessment/Plan Lines/Catheters IV Catheter Type (from [facility]): Central Line Parnell in Place (from [facility]): Yes Assessment/Plan Assessment/Plan [facility] Progress Note Date of Service: 03/06/2016 Today's Assessment & Plan: Overall stable and doing well. No major obvious postoperative complications or wound problems. No indication for acute surgical intervention. No further ascites leak and less leg swelling reflecting effective diuresis. I d/c'd his drain today without issues. ? timing of d/c since no further surgical issues. Parnell can likely come out. Will need clearance from other MD's prior to d/c home vs rehab. Much appreciate excellent care of all involved. With above assessment, I've recommended the following for today: 1. Increase activity 2. Increase incentive spirometry 3. Keep central line 4. Physical therapy 5. Advance diet as tolerated 6. Diurese as needed 7. Labs in a.m 8. Resume all pre-op meds and other needed cardiac meds 9. D/c parnell Thank you again for your great care of this very pleasant gentleman and his wonderful family. If there are any questions, please feel free to call me at [phone]. TOTAL VISIT TIME: 20 minutes of which more than half was spent in [id number] discussion with the patient as well as coordination of care between multiple physicians and providers. Disclaimer: Inadvertent spelling and grammatical errors are likely due to EHR/ dictation software use and do not reflect on the quality of delivered patient care. Also, please note that the electronic time recorded on this node does not necessarily reflect the actual time of the visit. Updated Clinical Summary: The patient is a very pleasant 70-year-old gentleman, well known to me from prior admission in September 2015 at [facility] when he had just had back surgery and I assisted with non-operative management of concerns about chronic cholecystitis, who was readmitted to [facility] on 02/03/16 with otherwise asymptomatic gallbladder wall abnormal thickening on imaging in the setting of acute on chronic congestive heart failure, renal compromise and GI bleeding. He again stabilized enough to be able to discharge home. I had discussed his case with his textile artist, Dr. Shabazz and we concluded that there were no further risk reduction strategies that could be employed for his heart. Given the sig change in GB images, I recommended that we proceed with laparoscopic, possible open cholecystectomy. S/p a difficult but uncomplicated laparoscopic cholecystectomy along with intraoperative ultrasound of liver, abdominal lavage, lysis of adhesions, and reinforcement of cholecystectomy staple line on 03/02/2016. Past and present comorbidity list: 1. Severe acute on chronic cholecystitis 2. Back pain 3. CAD (coronary artery disease) 4. Decreased renal function 5. Foot swelling 6. High blood pressure 7. High blood sugar 8. History of Clostridium difficile infection 9. History of methicillin resistant staphylococcus aureus (MRSA) 10. Hypothyroidism 11. Incisional hernia 12. Serum cholesterol very high 13. Stroke 14. Weakness 15. AMPUTATION OF TOE 16. Angioplasty 17. CABG x 5 - Coronary artery bypass grafts x 5 18. Cardiac catheterization of right and left heart for ventriculography 19. Cataract 20. Colonoscopy 21. GASTRIC BYPASS FOR OBESITY 22. Arthritis Subjective: No major events or complaints; no abd pain and under control with medications; no n/v/d; no sob or cp; + flatus; + BM; minimal activity Objective: Vitals: See below I's & O's: See below Exam: GENERAL: On exam, the patient was lying in bed and appeared to be comfortable and in no acute distress. ABDOMEN: Soft, nontender and nondistended. Incisions are clean, dry and intact without any evidence of obvious erythema, edema, discharge, or hernia. Surgical drain ss. I d/c'd his drain today at bedside without issues. There are no peritoneal signs or guarding. No further leakage from wound noted. SKIN: Skin appears to be pink and feels warm to touch. NEUROLOGIC: Patient is awake, alert, and follows commands appropriately. Labs: See below Exam/Review of Systems Vital Signs Vitals Vital Signs Date Time Temp Pulse Resp B/P Pulse Ox O2 Delivery O2 Flow Rate FiO2 03/06/16 16:33 66 03/06/16 16:22 98.0 18 146/69 95 03/06/16 15:27 2.0 03/06/16 12:03 Nasal Cannula 03/05/16 17:41 21 Intake and Output 03/05/16 03/05/16 03/06/16 15:00 23:00 07:00 Intake Total 650 ml Output Total 910 ml 150 ml Balance -260 ml -150 ml Results Result Diagram: 03/06/16 0555 03/06/16 0555 GLADYS MORALES M.D. Mar 06, 2016 17:14
--- NOTE | 2016-03-06 19:41 | CONS ---
Date/Time of Note Date/Time of Note DATE: 03/06/16 TIME: 19:40 Assessment/Plan Assessment/Plan Chief Complaint/Hosp Course IMPRESSION: This is a 70-year-old male with: 1. Status post laparoscopic cholecystectomy, 2. chronic renal failure, stable 3. History of chronic kidney disease, possibly stage III secondary to diabetic nephropathy. 4. History of coronary artery disease. 5. History of hypertension. 6. History of diabetes mellitus. 7. History of previous hemodialysis done for acute renal failure versus acute on chronic renal failure. The patient has been able to come off from dialysis. 8. History of recent diagnosis of deep venous thrombosis at [facility] 01/2016, on Effient. 9. Status post inferior vena cava filter. plan ck labs per dr smiley BMP am renal stable po liq Problems: Consultation Date/Type/Reason Admit Date/Time Mar 02, 2016 at 10:37 Type of Consultation: renal Referring Provider: GLADYS MORALES M.D. 24 HR Interval Summary Constitutional: no complaints Exam/Review of Systems Vital Signs Vitals Vital Signs Date Time Temp Pulse Resp B/P Pulse Ox O2 Delivery O2 Flow Rate FiO2 03/06/16 17:49 70 20 98 Nasal Cannula 2.0 03/06/16 17:15 97.9 154/75 03/05/16 17:41 21 Intake and Output 03/05/16 03/05/16 03/06/16 14:59 22:59 06:59 Intake Total 600 ml 650 ml Output Total 1000 ml 910 ml 80 ml Balance -400 ml -260 ml -80 ml Exam Neck: supple Respiratory: clear to auscultation Cardiovascular: regular rate and rhythm Gastrointestinal: bowel sounds (+), soft Musculoskeletal: nl extremities to inspection Extremities: edema (dec) Results Result Diagram: 03/06/16 0555 03/06/16 0555 Results 24 hrs Laboratory Tests Test 03/06/16 05:55 Anion Gap 14 Basophils # 0.0 Basophils % 0.5 Blood Morphology Comment Blood Urea Nitrogen 55 H Calcium Level 7.6 L Carbon Dioxide Level 29 Chloride Level 96 L Creatinine 2.22 H Eosinophils # 0.1 Eosinophils % 1.7 Glucose Level 71 Hematocrit 27.9 L Hemoglobin 9.3 L Lymphocytes # 0.9 Lymphocytes % 14.0 L Mean Corpuscular Hemoglobin 29.8 Mean Corpuscular Hemoglobin Concent 33.4 Mean Corpuscular Volume 89.0 Mean Platelet Volume 8.9 Monocytes # 0.5 Monocytes % 8.3 Neutrophils # 4.9 Neutrophils % 75.5 Nucleated Red Blood Cells # 0.0 Nucleated Red Blood Cells % 0.0 Platelet Count 231 # Potassium Level 4.3 Red Blood Count 3.13 L Red Cell Distribution Width 25.1 H Sodium Level 135 White Blood Count 6.5 Medications Medications Current Medications Acetaminophen/ Hydrocodone Bitart ([place] (5/325)) 1 tab Q4H PRN PO PAIN LEVEL 4 -7 Last administered on 03/06/16 17:15; Admin Dose 1 TAB; Start 03/02/16 at 17: 00 Acetaminophen/ Hydrocodone Bitart ([place] (5/325)) 2 tab Q4H PRN PO PAIN LEVEL 7 -10 Last administered on 03/05/16 09:15; Admin Dose 2 TAB; Start 03/02/16 at 17 :00 Hydromorphone HCl (Dilaudid) 0.5 mg Q2H PRN IV PAIN; Start 03/02/16 at 17:00 Hydromorphone HCl (Dilaudid) 1 mg Q2H PRN IV PAIN Last administered on 05:58; Admin Dose 1 MG; Start 03/02/16 at 17:00 Docusate Sodium (Colace) 100 mg BID PRN PO CONSTIPATION; Start 03/02/16 at 17: 00 Bisacodyl (Dulcolax Supp) 10 mg BID PRN [place] CONSTIPATION; Start 03/02/16 at 17: 00 Famotidine (Pepcid Iv) 20 mg DAILY IV Last administered on 03/06/16 08:06; Admin Dose 20 MG; Start 03/03/16 at 09:00 Docusate Sodium (Colace) 100 mg BID PO ; Start 03/04/16 at 09:00; Status Future Hold Bisacodyl (Dulcolax Supp) 10 mg BID [place] ; Start 03/04/16 at 09:00; Status Future Hold Sodium Biphosphate/ Sodium Phosphate (Fleet Enema) 133 ml BID@03,15 PRN [place] CONSTIPATION; Start 03/02/16 at 18:00 Allopurinol (Zyloprim) 100 mg BID PO Last administered on 03/06/16 08:06; Admin Dose 100 MG; Start 03/02/16 at 21:30 Aspirin (Aspirin) 81 mg DAILY PO Last administered on 03/06/16 08:06; Admin Dose 81 MG; Start 03/03/16 at 09:00 Carvedilol (Coreg) 3.125 mg BID PO Last administered on 03/06/16 08:06; Admin Dose 3.125 MG; Start 03/02/16 at 21:30 Pantoprazole (Protonix Tab) 40 mg DAILY@06 PO Last administered on 03/06/16 06 :05; Admin Dose 40 MG; Start 03/03/16 at 06:00 Ranolazine (Ranexa) 500 mg Q12 PO Last administered on 03/06/16 08:06; Admin Dose 500 MG; Start 03/02/16 at 21:00 Tamsulosin HCl (Flomax) 0.4 mg DAILY@21 PO Last administered on 03/05/16 21:12 ; Admin Dose 0.4 MG; Start 03/02/16 at 21:00 Fenofibrate (Tricor) 145 mg DAILY PO Last administered on 03/06/16 08:06; Admin Dose 145 MG; Start 03/03/16 at 09:00 Benazepril HCl (Lotensin) 10 mg DAILY PO Last administered on 03/06/16 08:07; Admin Dose 10 MG; Start 03/03/16 at 09:00 Isosorbide Dinitrate (Isordil) 5 mg TID PO Last administered on 03/06/16 12:30 ; Admin Dose 5 MG; Start 03/06/16 at 13:00 Prasugrel (Effient) 10 mg DAILY PO ; Start 03/07/16 at 09:00 Divalproex Sodium (Depakote) 250 mg QPM PO ; Start 03/06/16 at 21:00 CARLA HAMILTON MD Mar 06, 2016 19:41
[2016-03-06] MEDS ORDERED: DIVALPROEX (EC) 250 MG TAB PO SCH (21:00)
[2016-03-06] MEDS: TAMSULOSIN (SR) 0.4 MG CAP PO SCH (21:13)
[2016-03-07] MEDS: ALBUTEROL 0.5% (NEB) 2.5 MG/0.5 ML AMP INH SCH ×5 (00:38→17:00)
[2016-03-07] MEDS: LEVOTHYROXINE 75 MCG TAB PO SCH (06:27)
[2016-03-07] MEDS: FUROSEMIDE 40 MG TAB PO SCH ×2 (06:27→19:08)
[2016-03-07] MEDS: PANTOPRAZOLE (EC) 40 MG TAB PO SCH (06:27)
[2016-03-07 07:10] LABS: EOSINOPHILS # 0.2 10^3/ul (0.0-0.5); EOSINOPHILS % 3.1 % (0.0-7.0); HEMATOCRIT 29.4 % (42.0-52.0); HEMOGLOBIN 9.9 g/dl (14.0-18.0); LYMPHOCYTES # 0.8 10^3/ul (0.8-2.9); LYMPHOCYTES % 15.6 % (15.0-51.0); MEAN CORPUSCULAR HEMOGLOBIN 30.1 pg (29.0-33.0); MEAN CORPUSCULAR HGB CONC 33.6 g/dl (32.0-37.0); MEAN CORPUSCULAR VOLUME 89.5 fl (82.0-101.0); MEAN PLATELET VOLUME 8.5 fl (7.4-10.4); MONOCYTE # 0.5 10^3/ul (0.3-0.9); MONOCYTES % 10.5 % (0.0-11.0); NEUTROPHIL # 3.6 10^3/ul (1.6-7.5); NEUTROPHILS % 69.8 % (39.0-77.0); PLATELET COUNT 246 10^3/UL (140-440); RED BLOOD COUNT 3.28 10^6/ul (4.70-6.10); UNCORRECTED WBC 5.2 10^3/ul (4.8-10.8); WHITE BLOOD COUNT 5.2 10^3/ul (4.8-10.8)
[2016-03-07 07:20] LABS: CONDITION 1; LH ANALYZER COMMENTS 1; SUSPECT 1
[2016-03-07 07:42] VITALS: BP 141/73; RESP 20
[2016-03-07] MEDS ORDERED: PRASUGREL HYDROCHLORIDE 10 MG TABLET PO SCH (09:00)
[2016-03-07] MEDS ORDERED: PRASUGREL HCL 5 MG TABLET PO SCH (09:00)
[2016-03-07] MEDS: RANOLAZINE (SR) 500 MG TAB PO SCH (09:01)
[2016-03-07] MEDS: ASPIRIN 81 MG TAB PO SCH (09:01)
[2016-03-07] MEDS: ALLOPURINOL 100 MG TAB PO SCH (09:01)
[2016-03-07] MEDS: BENAZEPRIL 10 MG TAB PO SCH (09:02)
[2016-03-07] MEDS: ISOSORBIDE DINITRATE 5 MG TAB PO SCH ×2 (09:02→14:39)
[2016-03-07] MEDS: FENOFIBRATE 145 MG TAB PO SCH (09:02)
[2016-03-07] MEDS: FAMOTIDINE 20 MG INJ IV SCH (09:04)
--- NOTE | 2016-03-07 10:34 | RADRPT ---
Vent Rate: 71 bpm RR Interval: 0 msec [place] Interval: 304 msec QRS Duration: 156 msec QT Interval: 450 msec QTC Interval: 489 msec P-R-T [place]: 18 - -57 - 26 degrees Sinus rhythm with 1st degree AV block Left axis deviation Right bundle branch block Inferior infarct , age undetermined Abnormal ECG Electronically Signed By: Dev Mesa [id number]
[2016-03-07 11:00] LABS: POTASSIUM 4.1 mmol/L (3.5-5.1)
[2016-03-07 11:03] LABS: CREATININE 1.74 mg/dl (0.61-1.24)
[2016-03-07 11:04] LABS: CALCIUM 8.1 mg/dl (8.4-10.2)
--- NOTE | 2016-03-07 11:22 | PN ---
Date/Time of Note Date/Time of Note DATE: 03/07/16 TIME: 08:18 Assessment/Plan Lines/Catheters IV Catheter Type (from [facility]): Central Line Quijano in Place (from [facility]): Yes Assessment/Plan Assessment/Plan [facility] Progress Note Date of Service: 03/07/2016 Today's Assessment & Plan: Overall stable and doing well. No major obvious postoperative complications or wound problems. No indication for acute surgical intervention. No sig leak from wounds. Agree with SNF and can d/c from my standpoint anytime we have a bed available. With above assessment, I've recommended the following for today: 1. Increase activity 2. Increase incentive spirometry 3. Keep central line 4. Physical therapy 5. Advance diet as tolerated 6. Diurese as needed 7. Labs in a.m 8. Resume all pre-op meds and other needed cardiac meds 9. D/c to SNF Thank you again for your great care of this very pleasant gentleman and his wonderful family. If there are any questions, please feel free to call me at . TOTAL VISIT TIME: 20 minutes of which more than half was spent in [id number] discussion with the patient as well as coordination of care between multiple physicians and providers. Disclaimer: Inadvertent spelling and grammatical errors are likely due to EHR/ dictation software use and do not reflect on the quality of delivered patient care. Also, please note that the electronic time recorded on this node does not necessarily reflect the actual time of the visit. Updated Clinical Summary: The patient is a very pleasant 70-year-old gentleman, well known to me from prior admission in September 2015 at [facility] when he had just had back surgery and I assisted with non-operative management of concerns about chronic cholecystitis, who was readmitted to [facility] on 02/03/16 with otherwise asymptomatic gallbladder wall abnormal thickening on imaging in the setting of acute on chronic congestive heart failure, renal compromise and GI bleeding. He again stabilized enough to be able to discharge home. I had discussed his case with his health center assistant, Dr. Shabazz and we concluded that there were no further risk reduction strategies that could be employed for his heart. Given the sig change in GB images, I recommended that we proceed with laparoscopic, possible open cholecystectomy. S/p a difficult but uncomplicated laparoscopic cholecystectomy along with intraoperative ultrasound of liver, abdominal lavage, lysis of adhesions, and reinforcement of cholecystectomy staple line on 03/02/2016. Past and present comorbidity list: 1. Severe acute on chronic cholecystitis 2. Back pain 3. CAD (coronary artery disease) 4. Decreased renal function 5. Foot swelling 6. High blood pressure 7. High blood sugar 8. History of Clostridium difficile infection 9. History of methicillin resistant staphylococcus aureus (MRSA) 10. Hypothyroidism 11. Incisional hernia 12. Serum cholesterol very high 13. Stroke 14. Weakness 15. AMPUTATION OF TOE 16. Angioplasty 17. CABG x 5 - Coronary artery bypass grafts x 5 18. Cardiac catheterization of right and left heart for ventriculography 19. Cataract 20. Colonoscopy 21. GASTRIC BYPASS FOR OBESITY 22. Arthritis Subjective: No major events or complaints; no abd pain and under control with medications; no n/v/d; no sob or cp; + flatus; + BM; minimal activity with PT Objective: Vitals: See below I's & O's: See below Exam: GENERAL: On exam, the patient was lying in bed and appeared to be comfortable and in no acute distress. Eating regular breakfast. ABDOMEN: Soft, nontender and nondistended. Incisions are clean, dry and intact without any evidence of obvious erythema, edema, discharge, or hernia. Surgical drain site clean. There are no peritoneal signs or guarding. No leakage from wounds noted. SKIN: Skin appears to be pink and feels warm to touch. NEUROLOGIC: Patient is awake, alert, and follows commands appropriately. Labs: See below Exam/Review of Systems Vital Signs Vitals Vital Signs Date Time Temp Pulse Resp B/P Pulse Ox O2 Delivery O2 Flow Rate FiO2 03/07/16 09:14 78 20 98 Nasal Cannula 2.0 03/07/16 07:42 97.6 141/73 03/05/16 17:41 21 Intake and Output 03/06/16 03/06/16 03/07/16 15:00 23:00 07:00 Intake Total 500 ml 1240 ml 880 ml Output Total 2225 ml 2050 ml 2250 ml Balance -1725 ml -810 ml -1370 ml Results Result Diagram: 03/07/16 0530 03/07/16 0530 GLADYS MORALES M.D. Mar 07, 2016 11:21
[2016-03-07] MEDS ORDERED: LOPERAMIDE 2 MG CAP PO ONE (12:00)
--- NOTE | 2016-03-07 14:20 | PDOCDIS ---
Discharge Instructions CONDITION Patient Condition: Good HOME CARE INSTRUCTIONS: Special Diet: cardiac ACTIVITY: Activity Restrictions: Special Program FOLLOW UP/APPOINTMENTS Appointments Follow up with Dr. Hill in one week JS BATES MD Mar 07, 2016 14:20
[2016-03-07] MEDS ORDERED: DULR PR (14:24)
[2016-03-07] MEDS ORDERED: ISOS5TAB2 PO (14:24)
[2016-03-07] MEDS ORDERED: PRAS10TA6 PO (14:24)
[2016-03-07] MEDS ORDERED: HYDR-3498 PO (14:24)
[2016-03-07] MEDS ORDERED: DOCU-144 PO (14:24)
[2016-03-07] MEDS ORDERED: DIVA250T60 PO (14:24)
--- NOTE | 2016-03-07 15:11 | CONS ---
Date/Time of Note Date/Time of Note DATE: 03/07/16 TIME: 15:10 Assessment/Plan Assessment/Plan Chief Complaint/Hosp Course IMPRESSION: This is a 70-year-old male with: 1. Status post laparoscopic cholecystectomy, 2. chronic renal failure, stable 3. History of chronic kidney disease, possibly stage III secondary to diabetic nephropathy. 4. History of coronary artery disease. 5. History of hypertension. 6. History of diabetes mellitus. 7. History of previous hemodialysis done for acute renal failure versus acute on chronic renal failure. The patient has been able to come off from dialysis. 8. History of recent diagnosis of deep venous thrombosis at [facility] 01/2016, on Effient. 9. Status post inferior vena cava filter. plan ck labs per dr smiley BMP am renal stable po liq pt/ot Problems: Consultation Date/Type/Reason Admit Date/Time Mar 02, 2016 at 10:37 Type of Consultation: renal Referring Provider: GLADYS MORALES M.D. 24 HR Interval Summary Constitutional: no complaints Exam/Review of Systems Vital Signs Vitals Vital Signs Date Time Temp Pulse Resp B/P Pulse Ox O2 Delivery O2 Flow Rate FiO2 03/07/16 12:34 72 18 98 Nasal Cannula 2.0 03/07/16 07:42 97.6 141/73 03/05/16 17:41 21 Intake and Output 03/06/16 03/06/16 03/07/16 15:00 23:00 07:00 Intake Total 500 ml 1240 ml 880 ml Output Total 2225 ml 2050 ml 2250 ml Balance -1725 ml -810 ml -1370 ml Exam Respiratory: clear to auscultation Cardiovascular: regular rate and rhythm Gastrointestinal: soft Musculoskeletal: nl extremities to inspection Extremities: normal pulses Results Result Diagram: 03/07/16 0530 03/07/16 0530 Results 24 hrs Laboratory Tests Test 03/07/16 05:30 03/07/16 07:33 03/07/16 07:46 Anion Gap 13 Basophils # 0.0 Basophils % 1.0 Blood Morphology Comment Blood Urea Nitrogen 51 H Calcium Level 8.1 L Carbon Dioxide Level 32 H Chloride Level 97 Creatinine 1.74 H Eosinophils # 0.2 Eosinophils % 3.1 Glucose Level 71 Hematocrit 29.4 L Hemoglobin 9.9 L Lymphocytes # 0.8 Lymphocytes % 15.6 Mean Corpuscular Hemoglobin 30.1 Mean Corpuscular Hemoglobin Concent 33.6 Mean Corpuscular Volume 89.5 Mean Platelet Volume 8.5 Monocytes # 0.5 Monocytes % 10.5 Neutrophils # 3.6 Neutrophils % 69.8 Nucleated Red Blood Cells # 0.0 Nucleated Red Blood Cells % 0.0 Platelet Count 246 Potassium Level 4.1 Red Blood Count 3.28 L Red Cell Distribution Width 25.0 H Sodium Level 138 White Blood Count 5.2 Lab Scanned Report REFERENCE LAB REFERENCE LAB Medications Medications Current Medications Acetaminophen/ Hydrocodone Bitart ([place] (5/325)) 1 tab Q4H PRN PO PAIN LEVEL 4 -7 Last administered on 03/06/16 17:15; Admin Dose 1 TAB; Start 03/02/16 at 17: 00 Acetaminophen/ Hydrocodone Bitart ([place] (5/325)) 2 tab Q4H PRN PO PAIN LEVEL 7 -10 Last administered on 03/05/16 09:15; Admin Dose 2 TAB; Start 03/02/16 at 17 :00 Hydromorphone HCl (Dilaudid) 0.5 mg Q2H PRN IV PAIN; Start 03/02/16 at 17:00 Hydromorphone HCl (Dilaudid) 1 mg Q2H PRN IV PAIN Last administered on 05:58; Admin Dose 1 MG; Start 03/02/16 at 17:00 Docusate Sodium (Colace) 100 mg BID PRN PO CONSTIPATION; Start 03/02/16 at 17: 00 Bisacodyl (Dulcolax Supp) 10 mg BID PRN MD CONSTIPATION; Start 03/02/16 at 17: 00 Famotidine (Pepcid Iv) 20 mg DAILY IV Last administered on 03/07/16 09:04; Admin Dose 20 MG; Start 03/03/16 at 09:00 Docusate Sodium (Colace) 100 mg BID PO ; Start 03/04/16 at 09:00; Status Future Hold Bisacodyl (Dulcolax Supp) 10 mg BID MD ; Start 03/04/16 at 09:00; Status Future Hold Sodium Biphosphate/ Sodium Phosphate (Fleet Enema) 133 ml BID@03,15 PRN MD CONSTIPATION; Start 03/02/16 at 18:00 Allopurinol (Zyloprim) 100 mg BID PO Last administered on 03/07/16 09:01; Admin Dose 100 MG; Start 03/02/16 at 21:30 Aspirin (Aspirin) 81 mg DAILY PO Last administered on 03/07/16 09:01; Admin Dose 81 MG; Start 03/03/16 at 09:00 Carvedilol (Coreg) 3.125 mg BID PO Last administered on 03/07/16 09:01; Admin Dose 3.125 MG; Start 03/02/16 at 21:30 Pantoprazole (Protonix Tab) 40 mg DAILY@06 PO Last administered on 03/07/16 06 :27; Admin Dose 40 MG; Start 03/03/16 at 06:00 Ranolazine (Ranexa) 500 mg Q12 PO Last administered on 03/07/16 09:01; Admin Dose 500 MG; Start 03/02/16 at 21:00 Tamsulosin HCl (Flomax) 0.4 mg DAILY@21 PO Last administered on 03/06/16 21:13 ; Admin Dose 0.4 MG; Start 03/02/16 at 21:00 Fenofibrate (Tricor) 145 mg DAILY PO Last administered on 03/07/16 09:02; Admin Dose 145 MG; Start 03/03/16 at 09:00 Benazepril HCl (Lotensin) 10 mg DAILY PO Last administered on 03/07/16 09:02; Admin Dose 10 MG; Start 03/03/16 at 09:00 Isosorbide Dinitrate (Isordil) 5 mg TID PO Last administered on 03/07/16 14:39 ; Admin Dose 5 MG; Start 03/06/16 at 13:00 Prasugrel (Effient) 10 mg DAILY PO Last administered on 03/07/16 09:01; Admin Dose 10 MG; Start 03/07/16 at 09:00 Divalproex Sodium (Depakote) 250 mg QPM PO Last administered on 03/06/16 21:13 ; Admin Dose 250 MG; Start 03/06/16 at 21:00 CARLA HAMILTON MD Mar 07, 2016 15:11
--- NOTE | 2016-03-07 18:08 | DS ---
DATE OF ADMISSION: 03/02/2016 DATE OF DISCHARGE: 03/07/2016 CONSULTANTS: 1. Medical team. 2. Dr. Burton Eduardo. 3. Dr. Chriss Rosario. PROCEDURES: A 2D echocardiogram which demonstrated lower limit of normal systolic function. Mild concentric le ft ventricular hypertrophy. Mild enlargement of left ventricular cavity. Ejection fraction visuall y estimated at 50%. Abnormal diastolic dysfunction. Normal right ventricular systolic function. M ild enlargement of right ventricle. There is a moderate enlargement of left atrium. The right atri um is at the upper limit of normal. Estimated peak PA systolic pressure 67 mmHg. There is a mild t o moderate tricuspid regurgitation. Mild aortic stenosis. Trace aortic valve regurgitation. Mild mitral valve regurgitation. Normal pericardium with no significant pericardial effusion. DISCHARGE DIAGNOSES: 1. Severe acute on chronic cholecystitis status post laparoscopic cholecystectomy. Follow up with general surgeon as outpatient. 2. History of coronary artery disease, status post myocardial infarction. Continue Coreg, statin, aspirin. No acute event during this course of hospitalization. 3. Recent history of DVT in prior hospitalization status post inferior vena cava filter placement p rior to this admission. Continue FEN. 4. Hypothyroidism. Continue levothyroxine. 5. Congestive heart failure. Continue benazepril, Coreg and Lasix. 6. Chronic depression. Continue Divalproex. 7. Dyslipidemia. Continue statin. 8. Chronic renal insufficiency. Nephrology was consulted and no need of hemodialysis during this c ourse of hospitalization, patient's creatinine is stable. 9. History of diabetes mellitus. The patient's glucose level has been stable. 10. Episode of bradycardia likely medication related, stable. 11. Debility. PT, OT evaluate and treat and patient will be transferred to [facility]. 12. Pulmonary hypertension. Continue MISTI inhibitor and Lasix. 13. Gastroesophageal reflux disease. Continue PPI. 14. Benign prostatic hypertrophy. Continue Flomax. MEDICATIONS: 1. Albuterol sulfate q.4h. p.r.n. 2. Allopurinol 100 mg b.i.d. 3. Aspirin 81 mg daily. 4. Benazepril 10 mg p.o. daily. 5. Coreg 3.125 mg p.o. b.i.d., hold if systolic blood pressure is less than 110 or heart rate is le ss than 55. 6. Divalproex 150 mg q.p.m. 7. Colace 100 mg p.o. b.i.d. p.r.n. 8. Fenofibrate 145 mg daily. 9. Lasix 80 mg p.o. b.i.d. 10. [place] 5/325 one tab p.o. q.4h. p.r.n. 11. Isosorbide dinitrate 5 mg p.o. t.i.d. 12. Levothyroxine 75 mcg p.o. daily. 13. Protonix 40 mg p.o. daily. 14. Effient 10 mg p.o. daily. 15. Ranexa 500 mg p.o. b.i.d. 16. Flomax 0.4 mg p.o. daily. 17. Lipitor 40 mg p.o. daily. INSTRUCTIONS: 1. PT, OT evaluate and treat. 2. Diet: Cardiac. 3. Out of bed to chair 4 times daily with insurance sales assistant. 4. Activity with insurance sales assistant only. 5. CBC, BNP, magnesium in a.m. on 03/09/2016. DISPOSITION: To [facility] facility for physical therapy. HOSPITAL COURSE: 1. This is a 70-year-old gentleman with multiple problem diagnosis. Past medical history of myocar dial infarction, coronary artery disease, CABG, end-stage renal disease on hemodialysis previously a nd this time, the dialysis has been placed on hold secondary to patient's creatinine has been improv ing. 2. Cardiomyopathy, diabetic nephropathy, recent diagnosis of DVT in 01/2016 on Effient status post inferior vena cava filter. Wheelchair bound, who usually presents to [facility] and was se en and evaluated Dr. Andrez Hill at [facility] having abdominal pain and was diagnosed wi th symptomatic cholecystitis, although recently just had a laminectomy and the patient was transferr ed to [facility] facility. Surgical intervention was placed on hold and on 03/02/2016, patient was admitted with Dr. Andrez Hill for elective laparoscopic cholecystectomy secondary to severe a cute on chronic cholecystitis. After discussing the mode of treatment and risks and benefits of whitney frank, the patient signed the consent. the patient was taken to OR on 03/02/2016 under general endotr acheal tube anesthesia. The patient had laparoscopic cholecystectomy and the patient tolerated the procedure well and taken to the recovery room. The patient was then admitted to telemetry floor sec ondary to all of his comorbidities and history of heart disease. Patient was continued on his home medications except Effient was placed on hold x24 hours. The patient was placed on subcutaneous hep shawna. The patient was seen and evaluated by physical therapy and medical team and nephrology second arsh to history of chronic kidney insufficiency. The patient was found to have episodes of bradycard ia. This was most likely secondary to patient being on beta ling. Cardiology was consulted. A 2D echocardiogram was obtained which showed ejection fraction of 50% with stage I diastolic dysfunct ion and evidence of pulmonary edema with estimated peak PA systolic pressure of 67 mmHg. The patien t was continued on diuresis. In regard to his hypertension, his blood pressure has been well contr olled on Coreg, Benazepril, and Lasix. Patient also has been started on Isosorbide. Regarding his dyslipidemia, he has been continued on fibrates and at this time he will be restarted on statin. R egarding history of DVT and PE, he has had IVC filter in the past, was placed on subcutaneous hepari n during this course of hospitalization and has been transitioned to his home medication Effient. Halley miller has not required any blood transfusion during this course of hospitalization. He was seen and merissa luated by physical therapy. His CHRIS tube was removed on 03/06/2016 and today as per general surgery, he is cleared for discharge from medical standpoint and cardiology standpoint, also he is cleared to be transferred to [facility] facility. His vitals, temperature 97.3, pulse 74, respiration 20, blood pressure 141/____, oxygen saturation 98 to 100%. LABORATORY DATA: WBC 5.2, hemoglobin 9.9, hematocrit 29.4, platelets 246. Sodium 138, potassium 4. 1, chloride 97, bicarbonate 32, BUN 51, creatinine 1.74, calcium 8.1. CONDITION AT TIME OF DISCHARGE: Good. As per medical team and general surgery recommendation, mat srinivasan needs to be transferred to [facility] facility for physical therapy evaluation and treatmen t. Dictated By: JS BATES MD PN/NTS Conf#: [id number] DID#: [id number]
[2016-03-08] MEDS ORDERED: FAMOTIDINE 20 MG TAB PO SCH (09:00)
== END 2016-03-07 20:00 | DRG 417 ==
LOC: REC 10:37 → TEL 16:27 → MS2 03-06 16:57
PROVIDERS: ADMIT Transplant Surgery; ATTEND Transplant Surgery
PROC: 0FN Hepatobiliary System and Pancreas, Release (ICD-10-PCS; 2016-03-02)
PROC: 30233N1 Transfusion of Nonautologous Red Blood Cells into Peripheral Vein, Percutaneous Approach (ICD-10-PCS; 2016-03-02)
PROC: 0FT44ZZ Resection of Gallbladder, Percutaneous Endoscopic Approach (ICD-10-PCS; principal; 2016-03-02 13:00)
DX: K80.12 Calculus of gallbladder with acute and chronic cholecystitis without obstruction (principal); I50.23 Acute on chronic systolic (congestive) heart failure; N17.9 Acute kidney failure, unspecified; I13.0 Hypertensive heart and chronic kidney disease with heart failure and stage 1 through stage 4 chronic kidney disease, or unspecified chronic kidney disease; E03.9 Hypothyroidism, unspecified; K66.0 Peritoneal adhesions (postprocedural) (postinfection); Z98.84 Bariatric surgery status; Z95.1 Presence of aortocoronary bypass graft; R00.1 Bradycardia, unspecified; N18.3 Chronic kidney disease, stage 3 (moderate); E11.21 Type 2 diabetes mellitus with diabetic nephropathy; G40.909 Epilepsy, unspecified, not intractable, without status epilepticus
CPT/HCPCS: 36430; 71010; 76775; 80048; 80053; 80162; 81001; 81003; 82962; 83605; 83735; 83880; 84100; 84155; 84300; 85025; 85610; 85730; 86850; 86900; 86901; 86920; 87086; 88304; 88305; 88331; 93005; 93306; 94640; 94664; 97116; 97162; 97530; J1940; J0690; J1170; J1644; J2250; J2405; J2710; J3010; J3480; P9016

== ENCOUNTER 2016-03-29 15:16 | Outpatient (CLI) | payer OTHER ==
[~2016-03-29] VITALS: Ht 175.3 cm; Wt 79.5 kg
[~2016-03-29 15:16] MED LIST: ALBU2.5V9 IH; ALLO100T PO; ASPI81TA3 PO; ATOR40TA68 PO; CARV3.1260 PO; DIVA250T60 PO; DOCU-144 PO; DULR PR; FENO150C4 PO; HYDR-3498 PO; ISOS5TAB2 PO; LEVO75TA5 PO; PANT40TA4 PO; PRAS10TA6 PO; RAMI2.5C36 PO; RANO500T2 PO; TAMS0.4C2 PO
[2016-03-29 15:44] VITALS: Ht 175.3 cm; Wt 79.5 kg
[2016-03-29 15:45] VITALS: BP 127/68; PULSE 86; RESP 18
--- NOTE | 2016-03-29 16:22 | PN ---
Date/Time of Note Date/Time of Note DATE: 03/29/16 TIME: 16:14 Assessment/Plan Assessment/Plan Assessment/Plan [facility] Progress Note Date of Service: 03/29/16 Today's Assessment & Plan: Overall stable and doing well. No major obvious postoperative complications or wound problems. No indication for acute surgical intervention. I'm very please about his progress so far. With above assessment, I've recommended the following for today: 1. Increase activity 2. Encouraged healthy lifestyle 3. F/u with PCP 4. F/u with us prn Thank you again for your great care of this very pleasant gentleman and his wonderful family. If there are any questions, please feel free to call me at [phone]. TOTAL VISIT TIME: 20 minutes of which more than half was spent in [id number] discussion with the patient as well as coordination of care between multiple physicians and providers. Disclaimer: Inadvertent spelling and grammatical errors are likely due to EHR/ dictation software use and do not reflect on the quality of delivered patient care. Also, please note that the electronic time recorded on this node does not necessarily reflect the actual time of the visit. Updated Clinical Summary: The patient is a very pleasant 70-year-old gentleman, well known to me from prior admission in September 2015 at [facility] when he had just had back surgery and I assisted with non-operative management of concerns about chronic cholecystitis, who was readmitted to [facility] on 02/03/16 with otherwise asymptomatic gallbladder wall abnormal thickening on imaging in the setting of acute on chronic congestive heart failure, renal compromise and GI bleeding. He again stabilized enough to be able to discharge home. I had discussed his case with his oxygen equipment aide, Dr. Shabazz and we concluded that there were no further risk reduction strategies that could be employed for his heart. Given the sig change in GB images, I recommended that we proceed with laparoscopic, possible open cholecystectomy. S/p a difficult but uncomplicated laparoscopic cholecystectomy along with intraoperative ultrasound of liver, abdominal lavage, lysis of adhesions, and reinforcement of cholecystectomy staple line on 03/02/2016. D/c to SNF 03/07/2016. Past and present comorbidity list: 1. Severe acute on chronic cholecystitis 2. Back pain 3. CAD (coronary artery disease) 4. Decreased renal function 5. Foot swelling 6. High blood pressure 7. High blood sugar 8. History of Clostridium difficile infection 9. History of methicillin resistant staphylococcus aureus (MRSA) 10. Hypothyroidism 11. Incisional hernia 12. Serum cholesterol very high 13. Stroke 14. Weakness 15. AMPUTATION OF TOE 16. Angioplasty 17. CABG x 5 - Coronary artery bypass grafts x 5 18. Cardiac catheterization of right and left heart for ventriculography 19. Cataract 20. Colonoscopy 21. GASTRIC BYPASS FOR OBESITY 22. Arthritis Subjective: No major events or complaints since discharge; no major abd pain and under control with medications; no n/v/d; no sob or cp; + flatus; + BM; increased activity. Objective: Vitals: See below Exam: GENERAL: On exam, the patient was lying in bed and appeared to be comfortable and in no acute distress. ABDOMEN: Soft, nontender and nondistended. Incisions are clean, dry and intact without any evidence of obvious erythema, edema, discharge, or hernia. Surgical drain site clean. Last remaining suture removed at bedside without difficulty. There are no peritoneal signs or guarding. No leakage from wounds noted. SKIN: Skin appears to be pink and feels warm to touch. NEUROLOGIC: Patient is awake, alert, and follows commands appropriately. Labs: See below Exam/Review of Systems Vital Signs Vitals Vital Signs Date Time Temp Pulse Resp B/P Pulse Ox O2 Delivery O2 Flow Rate FiO2 03/29/16 15:45 97.4 86 18 127/68 97 Room Air GLADYS MORALES M.D. Mar 29, 2016 16:22
== END 2016-03-29 17:00 | disposition home or self-care (01) ==
LOC: HPC 15:16
PROVIDERS: ATTEND Transplant Surgery
DX: K81.9 Cholecystitis, unspecified (principal); M54.9 Dorsalgia, unspecified; I25.810 Atherosclerosis of coronary artery bypass graft(s) without angina pectoris; E03.9 Hypothyroidism, unspecified; K43.2 Incisional hernia without obstruction or gangrene; E78.00 Pure hypercholesterolemia, unspecified; Z86.73 Personal history of transient ischemic attack (TIA), and cerebral infarction without residual deficits; Z95.5 Presence of coronary angioplasty implant and graft; Z98.84 Bariatric surgery status; Z89.429 Acquired absence of other toe(s), unspecified side; Z86.14 Personal history of Methicillin resistant Staphylococcus aureus infection; Z95.1 Presence of aortocoronary bypass graft
CPT/HCPCS: G0463